=== PATIENT | female | born 1935 | race Caucasian/White ===

== ENCOUNTER 2021-05-19 10:44 | Outpatient (NON) | payer MEDICARE, SELFPAY ==
[2021-05-19 12:09] LABS: Add Urine Microscopic? YES; Appearance Urine Cloudy (Clear); Bacteria Urine 1+ /hpf; Bilirubin Urine Negative (Negative); Blood Urine Negative (Negative); Color Urine Amber (Yellow); Glucose Urine UA Negative (Negative); Ketones Urine Trace mg/dL (Negative); Leukocyte Esterase Ur 1+ LEU/UL (Negative); Mucus Urine Few /lpf; Nitrate Urine Negative (Negative); Protein Urine Negative (Negative); RBC Urine 21-50 /hpf (0-2); Specific Grav Ur 1.018 (1.001-1.035); Squamous Epithelial Cell Urine Many /hpf (Few); WBC Urine 21-30 /hpf
== END 2021-05-19 10:45 | disposition home or self-care (01) ==
PROVIDERS: PCP Family Medicine; Visit Provider Nurse Practitioner Family
DX: R35.0 Frequency of micturition (principal); R31.9 Hematuria, unspecified
CPT/HCPCS: 81001; 87077; 87086; 87186

== ENCOUNTER 2022-03-12 16:04 | Outpatient (CLI) | payer MEDICARE, SELFPAY ==
[2022-03-12 20:08] LABS: Vitamin D 25 Hydroxy 30.4 ng/mL
[2022-03-12 20:14] LABS: Alanine Aminotransferase 17 U/L (6-35); Albumin Level 4.6 g/dL (3.5-5.1); Alkaline Phosphatase 117 U/L (38-126); Anion Gap 13 mmol/L (8-16); Aspartate Amino Transferase 31 U/L (14-36); Bilirubin,Total 0.3 mg/dL (0.2-1.3); Blood Urea Nitrogen 15 mg/dL (7-17); Calcium 9.1 mg/dL (8.4-10.2); Carbon Dioxide 19 mmol/L (22-30); Chloride 95 mmol/L (98-107); Estimated Glomerular Filt Rate > 60; Glucose 105 mg/dL (65-110); Sodium 127 mmol/L (137-145)
[2022-03-12 21:16] LABS: Basophils Percent Auto 0.3 % (0.2-1.2); Eosinophils Absolute Auto 0.3 K/mm3 (0-0.3); Eosinophils Percent Auto 4.2 % (0-4.4); Hemoglobin 13.6 g/dL (12.0-15.0); Immature Granulocyte Absolute 0.01 K/mm3 (0.00-0.031); Immature Granulocyte Percent A 0.2 % (0-0.5); Lymphocytes Percent Auto 30.3 % (18.3-44.2); Mean Corpuscular HGB Conc 33.2 g/dl (32-36); Mean Corpuscular Hemoglobin 31.5 pg (26-34); Mean Corpuscular Volume 94.9 fl (80-100); Mean Platelet Volume 10.6 fl (7.4-10.4); Monocytes Absolute Auto 0.5 K/mm3 (0.1-0.6); Monocytes Percent Auto 7.3 % (2.6-8.5); Neutrophils Absolute Auto 3.8 K/mm3 (1.3-6.7); Neutrophils Percent Auto 57.7 % (45.5-73.1); Platelet Count Result 232 k/mm3 (150-375); Red Blood Count 4.32 M/mm3 (4.2-5.4); Red Cell Distribution Width 13.5 % (11.5-14.5); White Blood Count 6.6 K/mm3 (4.5-10.0)
== END 2022-03-12 16:05 | disposition home or self-care (01) ==
LOC: ANHGOSHLAB 16:05
PROVIDERS: PCP Family Medicine; Visit Provider Nurse Practitioner Family
DX: E55.9 Vitamin D deficiency, unspecified (principal); I10 Essential (primary) hypertension; E03.9 Hypothyroidism, unspecified
CPT/HCPCS: 36415; 80053; 82306; 84443; 85025

== ENCOUNTER 2022-03-17 12:20 | Inpatient (IN) | payer MEDICARE, SELFPAY ==
--- NOTE | ~2022-03-17 | CT_ITS ---
EXAMINATION: CTA BRAIN/CAROTID DATE: 03/19/2022 14:08 INDICATION: Acute stroke. Dementia. Hypertension. TECHNIQUE: Computed tomographic angiography (CTA) of the head and neck was performed with 100 mL Omni paque-350 intravenous contrast. Multiplanar reconstructions and maximum intensity projection 3D-recon structions of the carotid arteries and of the intracranial arteries were created by the technologist on a separate workstation. Precontrast CT of the head was also obtained. Automated exposure control and iterative reconstruction technique were employed.The dose-length product was 1494.15 mGy-cm. COMPARISON: None. FINDINGS: Carotid arteries: Small amount of not hemodynamically significant atherosclerotic plaque at the normal caliber aortic a rch and at the origins of the innominate artery. There is small amount of atherosclerotic plaque with 0% stenosis of both the right and left carotid bulbs relative to normal distal artery lumen diameter (NASCET criteria). The right vertebral artery is dominant. Head: Again seen is a region of prominent decreased attenuation consistent with a known subacute infarct in volving the left basal ganglia including the caudate and lentiform nuclei and intervening anterior li mb of the internal capsule. No acute intracranial hemorrhage or abnormal extra axial fluid collection . There is mild scattered white matter hypoattenuation consistent with chronic small vessel ischemic disease. Symmetric prominence of the sulci consistent with mild age-appropriate diffuse cerebral volu me loss. Ventricles are normal and symmetric. No mass/mass effect. No abnormally enhancing brain lesi ons. The orbits, paranasal sinuses and mastoid air cells are normal. Intracranial arteries Right vertebral artery is dominant. Small amount of atherosclerotic plaque without hemodynamically si gnificant stenosis along the intracranial portion of the bilateral vertebral arteries as well as at t he bilateral carotid siphons. There is no hemodynamically significant stenosis in the vertebral, basi lar and internal carotid arteries. There are no aneurysms identified. Both A1 and P1 segments are pa tent. The P1 segments are however diminutive with majority of flow to the posterior circulation appea ring to arise from the anterior circulation via larger caliber bilateral posterior communicating paul vick. Cerebral arterial arborization appears symmetric. IMPRESSION: 1. Small amount of atherosclerotic plaque with 0% stenosis of the right and left carotid bulbs relati ve to normal distal artery lumen diameter (NASCET criteria). 2. Acute to subacute infarct at the left basal ganglia. 3. Small amount of nonhemodynamically significant atherosclerotic plaque at the intracranial bilatera l vertebral arteries as well as at the bilateral carotid siphons. No hemodynamically significant sten osis, aneurysm or dissection of the cerebral arteries. Reviewed, dictated and finalized at location B. IMPRESSION: 1. Small amount of atherosclerotic plaque with 0% stenosis of the right and lef t carotid bulbs relative to normal distal artery lumen diameter (NASCET criteri a). 2. Acute to subacute infarct at the left basal ganglia. 3. Small amount of nonhemodynamically significant atherosclerotic plaque at the intracranial bilateral vertebral arteries as well as at the bilateral carotid siphons. No hemodynamically significant stenosis, aneurysm or dissection of the cerebral arteries.
--- NOTE | ~2022-03-17 | CT_ITS ---
EXAMINATION: CT abdomen pelvis w con DATE: 03/17/2022 15:29 INDICATION: fever, palpable mass in lower abdomen/pelvis TECHNIQUE: Computed tomography (CT) of the abdomen and pelvis was performed with 100 mL Omnipaque-350 intravenous contrast. Automated exposure control and iterative reconstruction technique were employe d. The dose-length product was 710.19 mGy-cm. COMPARISON: 05/15/2016. FINDINGS: Lower thorax: Coronary artery calcification. Mild cardiomegaly. Right basilar atelectasis. Liver: Mild pneumobilia likely secondary to prior biliary procedure. Biliary/Gallbladder: Gallbladder is absent. No bile duct dilation. Pancreas: No mass or duct dilation. Spleen: Normal. Adrenals:No mass. Kidneys: Bilateral simple cysts. 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 GI tract: No small or large bowel dilation. Appendix not visualized. Diverticulosis without diverticu litis. Mesentery/Peritoneum: No ascites, mass, or free air. Retroperitoneum: No mass. Atherosclerotic abdominal aortic and/or arterial calcifications. Pelvis: Bladder wall inflammation and thickening, bubble of intraluminal gas. Uterus not visualized. Soft Tissues: Soft tissues and body wall unremarkable. Bones: No acute osseous finding. IMPRESSION: Likely cystitis. Otherwise, no acute abdominopelvic process detected. Reviewed, dictated and finalized at location K.
--- NOTE | ~2022-03-17 | MR_ITS ---
EXAMINATION: MR brain/brain stem wo con DATE: 03/18/2022 13:08 INDICATION: Altered mental status. Slurred speech. TECHNIQUE: Magnetic resonance imaging (MRI) of the brain and brainstem was performed without intraven ous contrast. Sequences included sagittal and axial T1-weighted SE, axial diffusion-weighted FS SE, a xial T2*-weighted GRE, axial T2-weighted FLAIR Propeller, and axial T2-weighted Propeller. Apparent d iffusion coefficient (ADC) maps were created. COMPARISON: CT brain dated 03/17/2022. FINDINGS: There is an acute infarction of the left basal ganglia. No evidence for hemorrhage. No vent riculomegaly or midline shift. Structures of the posterior fossa including 7/8th cranial nerve comple xes are normal. No ventriculomegaly or midline shift. Paranasal sinuses are unremarkable. Midline sag ittal images demonstrate a normal corpus callosum and craniovertebral junction. There are scattered m ild periventricular and subcortical white matter changes, most likely related to small vessel ischemi c disease (microangiopathy). IMPRESSION: 1. Acute left lacunar infarction. Dr. Grayson Jerry discussed with with the patient's nurse on [facility] at 03/18/2022 13 :25 CDT. Reviewed, dictated and finalized at location A. IMPRESSION: 1. Acute left lacunar infarction. Dr. Grayson Jerry discussed with with the patient's nurse on [facility],Roopa eckert at 03/18/2022 13:25 CDT.
--- NOTE | ~2022-03-17 | XR_ITS ---
EXAM: XR ankle RT min 3V, XR foot RT min 3V DATE: 03/17/2022 16:42 HISTORY: Right great toe bruising, right lateral ankle swelling/unable to walk on it x4 days . COMPARISON: None available. FINDINGS: Decreased mineralization. No fracture or dislocation. No lytic or blastic lesion. Degenera tive changes at the first MTP, tibiotalar joint and multiple midfoot joints. Achilles and plantar ent hesopathy. No erosion or periosteal change. Ankle and forefoot soft tissue swelling. IMPRESSION: No acute osseous finding in the right foot or ankle. Reviewed, dictated and finalized at location K. IMPRESSION: No acute osseous finding in the right foot or ankle.
--- NOTE | ~2022-03-17 | US_ITS ---
EXAMINATION: US carotid duplex BI DATE: 03/19/2022 13:59 INDICATION: Stroke. Carotid atherosclerosis. TECHNIQUE: Grayscale, color Doppler, and pulsed Doppler images of the cervical carotid arteries were obtained. The degree of vessel stenosis is placed in one of the following categories: normal, <50%, 5 0-69%, >=70% but less than near-occlusion, near-occlusion, or total occlusion. Note that percent sten osis relative to normal distal artery lumen diameter is indirectly measured from velocity measurement s as described by Armaan, et al. Radiology 2003; 229:340-346. COMPARISON: 12/23/2015 FINDINGS: RIGHT: The right common carotid artery (CCA) peak systolic velocity (PSV) is 63 cm/s. The right internal car otid artery (ICA) PSV is 71 cm/s. The right ICA end-diastolic velocity (EDV) is 19 cm/s. The right IC A/CCA PSV ratio is 1.1. Grayscale and color Doppler images yield an estimate of <50% diameter reducti on from plaque in the ICA. The external carotid artery (ECA) PSV is 107 cm/s. There is antegrade flow in the right vertebral artery. LEFT: The left CCA PSV is 48 cm/s. The left ICA PSV is 72 cm/s. The left ICA EDV is 20 cm/s. The left ICA/C CA PSV ratio is 1.5. Grayscale and color Doppler images yield an estimate of <50% diameter reduction from plaque in the ICA. The ECA PSV is 99 cm/s. There is antegrade flow in the left vertebral artery. IMPRESSION: 1. <50% stenosis in the right internal carotid artery. 2. <50% stenosis in the left internal carotid artery. Reviewed, dictated and finalized at location B.
--- NOTE | ~2022-03-17 | XR_ITS ---
EXAMINATION: XR chest 2V 03/17/2022 13:20 INDICATION: Weakness. PROCEDURE: AP and lateral view of the chest COMPARISON: 05/15/2016 FINDINGS: The lungs are clear. The cardiomediastinal silhouette is within normal limits. There are no pleural effusions. There is no pneumothorax suspected. IMPRESSION: 1: NO ACUTE CARDIOPULMONARY DISEASE. Reviewed, dictated and finalized at location A.
--- NOTE | ~2022-03-17 | CT_ITS ---
EXAMINATION: CT brain wo con DATE: 03/17/2022 15:28 INDICATION: weakness . TECHNIQUE: Computed tomography (CT) of the head was performed without intravenous contrast. The mA wa s adjusted according to patient size. Iterative reconstruction technique was employed. The dose-lengt h product was 605.33 mGy-cm. COMPARISON: 05/16/2016 FINDINGS: No acute intracranial hemorrhage or extra-axial fluid collection. No hydrocephalus, mass, or herniation. No acute ischemic infarct. Unremarkable dural venous sinus attenuation. No acute osseous abnormality. The aerated spaces are clear. Mild atrophy and chronic white matter change. Atherosclerotic intracranial calcification. Old left ba bailey ganglia infarct. Bilateral lens replacements. IMPRESSION: No acute intracranial process. Reviewed, dictated and finalized at location K.
[2022-03-17 12:23] VITALS: BP 147/104; PULSE 86; RESP 15; TEMP 37.7
[2022-03-17 13:01] LABS: Add Urine Microscopic? YES; Appearance Urine Clear (Clear); Bilirubin Urine Negative (Negative); Blood Urine Negative (Negative); Color Urine Amber (Yellow); Glucose Urine UA Negative (Negative); Ketones Urine 1+ mg/dL (Negative); Leukocyte Esterase Ur Negative LEU/UL (Negative); Mucus Urine Rare /lpf; Nitrate Urine Negative (Negative); Protein Urine 1+ mg/dL (Negative); RBC Urine 0-2 /hpf (0-2); Specific Grav Ur 1.016 (1.001-1.035); WBC Urine 0-3 /hpf
[2022-03-17 13:18] LABS: Basophils Percent Auto 0.1 % (0.2-1.2); Eosinophils Percent Auto 0.3 % (0-4.4); Immature Granulocyte Absolute 0.05 K/mm3 (0.00-0.031); Immature Granulocyte Percent A 0.5 % (0-0.5); Lymphocytes Absolute Auto 1.04 K/mm3 (0.9-3.2); Lymphocytes Percent Auto 10.5 % (18.3-44.2); Mean Corpuscular HGB Conc 34.2 g/dl (32-36); Mean Corpuscular Hemoglobin 31.3 pg (26-34); Mean Corpuscular Volume 91.6 fl (80-100); Monocytes Absolute Auto 0.8 K/mm3 (0.1-0.6); Neutrophils Percent Auto 80.6 % (45.5-73.1); Platelet Count Result 199 k/mm3 (150-375); Red Blood Count 4.15 M/mm3 (4.2-5.4); Red Cell Distribution Width 13.2 % (11.5-14.5); White Blood Count 9.9 K/mm3 (4.5-10.0)
[2022-03-17 13:25] LABS: Lactic Acid Reflex 1.2 mmol/L (0.7-2.0)
[2022-03-17 13:26] LABS: Alanine Aminotransferase 22 U/L (6-35); Albumin Level 4.1 g/dL (3.5-5.1); Alkaline Phosphatase 93 U/L (38-126); Anion Gap 13 mmol/L (8-16); Aspartate Amino Transferase 40 U/L (14-36); Bilirubin,Total 0.7 mg/dL (0.2-1.3); Blood Urea Nitrogen 15 mg/dL (7-17); Calcium 8.9 mg/dL (8.4-10.2); Carbon Dioxide 23 mmol/L (22-30); Chloride 93 mmol/L (98-107); Estimated Glomerular Filt Rate > 60; Glucose 122 mg/dL (65-110); Lipase 69 U/L (23-300); Potassium 3.1 mmol/L (3.4-5.0); Sodium 129 mmol/L (137-145)
[2022-03-17] MEDS: SODIUM CHLORIDE 0.9% IV 500 ML 999 ML IV CONT (13:34)
[2022-03-17 13:44] LABS: CRP 17.1 mg/dL (<1.0)
--- NOTE | 2022-03-17 13:45 | ED.WEAKNESS ---
HPI - Weakness General Chief complaint: Weakness <January Cosme PA-C - Last Filed: 03/17/22 18:00> Stated complaint: weakness <January Cosme PA-C - Last Filed: 03/17/22 18:00> Time Seen by Provider: 03/17/22 12:23 <January Cosme PA-C - Last Filed: 03/17/22 18:00> Source: patient and family <MILDRED Williamson Last Filed: 03/17/22 18:00> Mode of arrival: EMS <January Cosme PA-C - Last Filed: 03/17/22 18:00> Limitations: dementia <MILDRED Williamson Last Filed: 03/17/22 18:00> History of Present Illness HPI Narrative: This is a 86 year old female that presents to the ER for generalized weakness worsening over the last couple of days. Patient with history of dementia, unable to provide any history. Her reports over the last week she has not been herself. Over the last couple of days she is not even wanting to get out of of her chair. She usually is ambulatory. She was seen at her primary's office earlier this week and presumptively started on Macrobid for possible UTI. Due to her becoming incontinent. She has continued to become more weak since. She has not any specific complaints. Noted to be borderline febrile upon arrival. <January Cosme PA-C - Last Filed: 03/17/22 18:00> Related Data Allergies/Adverse reactions: Allergies Allergy/AdvReac Type Severity Reaction Status Date / Time Penicillins Allergy Unknown Unknown Verified 03/12/22 15:39 <January Cosme PA-C - Last Filed: 03/17/22 18:00> Review of Systems Review of Systems: ROS unobtainable: Yes unobtainable due to medical condition <January Cosme PA-C - Last Filed: 03/17/22 18:00> [facility] Past Medical History Medical History: Medical History Dementia Dyslipidemia Essential (primary) hypertension Gastro-esophageal reflux disease without esophagitis Hypothyroidism, unspecified <January Cosme PA-C - Last Filed: 03/17/22 18:00> Family History Family History: Family History Mother Family history of liver disease <MILDRED Williamson Last Filed: 03/17/22 18:00> Social History Social History: Social History Social History: . Smoking status: Never smoker Alcohol intake: current <MILDRED Williamson Last Filed: 03/17/22 18:00> Exam Narrative: GENERAL: Elderly, well-nourished, and in no acute distress. HEAD: Normocephalic, atraumatic. EYES: PERRLA and EOMI. ENT: Nares clear, no rhinorrhea or epistaxis. Mucous membranes moist. Oropharynx without tonsillar hypertrophy exudate or other lesions. Bilateral TMs pearly sykes non-bulging NECK: Supple. No adenopathy or masses. CHEST: Clear to auscultation. No respiratory distress. No wheezes rales or rhonchi HEART: Regular rate and rhythm. No murmur heard. Normal peripheral pulses. ABDOMEN: Soft, nontender, nondistended, normal active bowel sounds. EXTREMITIES: Normal range of motion. No edema. SKIN: Warm, dry, no rash. NEURO: No focal deficits. Alert and oriented x1. 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 On exam heart regular rate and rhythm without murmur, lungs clear to station bilaterally the abdomen is soft and nontender. Discussed with patient plan for admission all questions answered in agreement at this time <Glimar Vazquez DO - Last Filed: 03/17/22 18:16> Consultations Consultation #1: Spoke with hospitalist about patient and work-up who accepts admission <January Cosme PA-C - Last Filed: 03/17/22 18:00> Date: 03/17/22 <January Cosme PA-C - Last Filed:
[2022-03-17 13:50] LABS: Influenza A QL RT-PCR Negative (Negative); Influenza B QL RT-PCR Negative (Negative); SARS-CoV-2 RNA PCR Negative
--- NOTE | 2022-03-17 14:03 | ECG_ITS ---
Measurements Intervals [place] Rate: 75 P: -25 [place]: 137 QRS: 1 QRSD: 92 T: 16 QT: 408 QTc: 456 Interpretive Statements SINUS RHYTHM WITHIN NORMAL LIMITS NO PREVIOUS ECG AVAILABLE FOR COMPARISON Electronically Signed On 03-18-2022 10:13:43 CDT by Joel Obrien M.D.
[2022-03-17] MEDS: POTASSIUM CHLORIDE 20 MEQ TABLET 40 MEQ PO (16:42)
[2022-03-17 17:04] VITALS: TEMP 36.8
[2022-03-17] MEDS: NITROFURANTOIN MONOHYD MACROCR 100 MG CAP PO (18:18)
[2022-03-17 18:41] LABS: Erythrocyte Sedimentation Rate 43 mm/hr (0-20)
[2022-03-17 19:13] VITALS: BP 172/101; PULSE 80; RESP 16; O2SAT 98
--- NOTE | 2022-03-17 19:13 | PC.NURSE ---
Assumed care of pt at this time. Pt A&Ox1 per baseline. Family at bedside.
[2022-03-17 19:47] VITALS: BP 151/76; PULSE 65; RESP 18; O2SAT 100
[2022-03-17 20:00] VITALS: BP 146/63; PULSE 75; RESP 18; TEMP 36.8; O2SAT 97
--- NOTE | 2022-03-17 20:30 | PC.NURSE ---
This patient, Charley Lane, was admitted to 3 [facility] Surg Room 325-01. Patient/family oriented to hospital policies and general routines including ID bracelet, bed and alarms, visiting hours, pain management, procedures, bathroom and other care routines, personal items, smoking policy, room service/diet, and visiting hours. Information on how to activate the Rapid Response Team has been discussed. Patient/Family are encouraged to report perceived risks to care and to ask questions if they do not understand what they are told or what they should do. Pt provided answers to admission questions, medication list provided. A&OX1 pt at baseline hx dementia
--- NOTE | 2022-03-17 20:41 | PM.IMHP ---
H&P: HPI History of Present Illness Date/Time: 03/17/22 20:41 Chief Complaint: fall Narrative: THIS IS AN 86-YEAR-OLD FEMALE WITH PAST MEDICAL HISTORY SIGNIFICANT FOR HYPERTENSION, HYPOTHYROIDISM, WHEELCHAIR-BOUND, STROKE HOME PATIENT WAS BROUGHT TO THE EMERGENCY ROOM FOR EVALUATION DUE TO GENERALIZED WEAKNESS SHE IS USUALLY ABLE TO TRANSFER FROM AND 2 HER WHEELCHAIR WHICH SHE HAS NOT BEEN ABLE TO DO OF LATELY AND JUST HAD A FALL WHILE TRYING TO GET IN THE WHEELCHAIR IN THE MORNING FROM THE BED. PATIENT CANNOT PROVIDE MUCH HISTORY PRELIMINARY WORKUP WAS SIGNIFICANT FOR: CT OF ABDOMEN AND PELVIS WAS REPORTED : IMPRESSION: Likely cystitis. Otherwise, no acute abdominopelvic process detected. CT head was reported as: IMPRESSION:? No acute intracranial process. chest x-ray was reported as: IMPRESSION: 1:? NO ACUTE CARDIOPULMONARY DISEASE. Review of Systems Review of Systems: ROS unobtainable: Yes unobtainable due to medical condition ( dementia) [facility] Past Medical History Medical History Dementia Dyslipidemia Essential (primary) hypertension Gastro-esophageal reflux disease without esophagitis Hypothyroidism, unspecified Family History Family History Mother Family history of liver disease Social History Social History Social History: . Smoking status: Never smoker Alcohol intake: never Substance use: never Spiritual care concerns: No Meds Home Medications and Allergies Home Medications Medication Instructions Recorded Confirmed Type metoprolol tartrate 50 mg tablet 50 mg PO BID #180 tabs 12/12/21 03/17/22 Rx lisinopril 40 mg tablet 40 mg PO DAILY #90 tabs 01/19/22 03/17/22 Rx memantine 5 mg tablet (Namenda) 5 mg PO QAM #90 tabs 02/05/22 03/17/22 Rx levothyroxine 75 mcg tablet 75 mcg PO DAILY #90 tabs 03/12/22 03/17/22 Rx nitrofurantoin 100 mg PO Q12H 7 days #14 caps 03/12/22 03/17/22 Rx monohydrate/macrocrystals 100 mg capsule (Macrobid) Allergies Allergy/AdvReac Type Severity Reaction Status Date / Time Penicillins Allergy Unknown Unknown Verified 03/12/22 15:39 Vital Signs Vital Signs - 24 hr 03/17/22 12:23 03/17/22 17:04 03/17/22 19:13 Temperature 99.9 F H 98.2 F Pulse Rate 86 80 Respiratory Rate 15 16 Blood Pressure 147/104 H 172/101 H Pulse Oximetry 98 Oxygen Delivery Room Air 03/17/22 19:47 Temperature Pulse Rate 65 Respiratory Rate 18 Blood Pressure 151/76 H Pulse Oximetry 100 Oxygen Delivery Exam Narrative: patient laying extraction Const: General: comfortable, no acute distress, well developed, alert, awake, ill appearing and average body habitus Nutritional Appearance: average body habitus Orientation/consciousness: patient oriented x3 HENMT: Head: normal to inspection, normocephalic and atraumatic Ears: hearing grossly normal bilaterally Face/Nose/Sinus: normal facial exam Face and sinus: normal facial exam Eyes: General: appearance normal, both eyes and all related structures Pupils: Equal, round and reactive pupils present EOM: EOMs intact bilaterally Neck: Neck: full ROM, no lymphadenopathy and no JVD Thyroid: thyroid normal Lymphatic: no lymphadenopathy noted Resp: Effort & Inspection: normal respiratory effort and able to speak in complete sentences Auscultation: clear to auscultation bilaterally Cardio: Jugular venous distension: no JVD Rate: regular rate Rhythm: regular rhythm Heart sounds: S1 normal heart sound present and S2 normal heart sound present GI: GI Palp: Yes Soft to palpation and Yes No hepatosplenomegaly present : General: Yes deferred Skin: Rashes: no rashes Wounds: no wounds Neuro: General: oriented to person and CN's II-XI intact bilaterally Cranial nerves: Yes CN's II-XII intact bilaterally and Yes Equal, r
[2022-03-17 20:51] VITALS: BMI 24.3
[2022-03-18 06:00] VITALS: BP 151/72; PULSE 77; RESP 18; TEMP 36.2; O2SAT 96
[2022-03-18 09:33] LABS: Basophils Percent Auto 0.1 % (0.2-1.2); Eosinophils Absolute Auto 0.1 K/mm3 (0-0.3); Eosinophils Percent Auto 1.4 % (0-4.4); Hematocrit 36.5 % (37.0-47.0); Hemoglobin 12.3 g/dL (12.0-15.0); Immature Granulocyte Absolute 0.02 K/mm3 (0.00-0.031); Immature Granulocyte Percent A 0.3 % (0-0.5); Lymphocytes Absolute Auto 0.85 K/mm3 (0.9-3.2); Lymphocytes Percent Auto 11.9 % (18.3-44.2); Mean Corpuscular HGB Conc 33.7 g/dl (32-36); Mean Corpuscular Hemoglobin 30.7 pg (26-34); Mean Platelet Volume 9.9 fl (7.4-10.4); Monocytes Absolute Auto 0.4 K/mm3 (0.1-0.6); Monocytes Percent Auto 5.5 % (2.6-8.5); Neutrophils Absolute Auto 5.8 K/mm3 (1.3-6.7); Neutrophils Percent Auto 80.8 % (45.5-73.1); Platelet Count Result 205 k/mm3 (150-375); Red Blood Count 4.01 M/mm3 (4.2-5.4); Red Cell Distribution Width 13.2 % (11.5-14.5); White Blood Count 7.1 K/mm3 (4.5-10.0)
[2022-03-18 09:43] LABS: Alanine Aminotransferase 29 U/L (6-35); Albumin Level 3.7 g/dL (3.5-5.1); Alkaline Phosphatase 81 U/L (38-126); Anion Gap 6 mmol/L (8-16); Aspartate Amino Transferase 53 U/L (14-36); Bilirubin,Total 0.6 mg/dL (0.2-1.3); Blood Urea Nitrogen 13 mg/dL (7-17); Calcium 8.6 mg/dL (8.4-10.2); Carbon Dioxide 25 mmol/L (22-30); Chloride 99 mmol/L (98-107); Estimated CRCL calculation 51 ml/min; Estimated Glomerular Filt Rate > 60; Glucose 183 mg/dL (65-110); Potassium 3.3 mmol/L (3.4-5.0); Sodium 130 mmol/L (137-145)
[2022-03-18 09:46] VITALS: PULSE 77
[2022-03-18] MEDS: METOPROLOL TARTRATE 50 MG TAB PO ×2 (09:46→21:26)
[2022-03-18] MEDS: LEVOTHYROXINE SODIUM 75 MCG TABLET PO (09:47)
[2022-03-18] MEDS: TAMSULOSIN HCL 0.4 MG CAPSULE PO (09:47)
[2022-03-18] MEDS: MEMANTINE 5 MG TABLET PO (09:47)
[2022-03-18] MEDS: lisinopriL 20 MG TABLET 40 MG PO (09:47)
--- NOTE | 2022-03-18 11:35 | PCOTNOTE ---
Attempted OT evaluation, patient refused at this time as lunch was coming.
--- NOTE | 2022-03-18 11:35 | P.PNIM_ITS ---
Progress Note: A&P Assessment and Plan (1) Acute hypokalemia: Code(s): E87.6 - Hypokalemia Status: Acute Assessment and Plan: * K 3.1 upon arrival, currently 3.3 * replacement given * Continue to trend labs * Replace as indicated (2) Acute urinary retention: Code(s): R33.8 - Other retention of urine Status: Acute Assessment and Plan: * Patient was noted to have urinary retention. * Urinary catheter was inserted * continue tamsulosin * trend urine output * will possibly need a voiding trial * could be contributing to the weakness * CT the abdomen and pelvis shows likely cystitis which could also be related to retention (3) Generalized weakness: Code(s): R53.1 - Weakness Status: Acute Assessment and Plan: * patient with progressive noted weakness * PT and OT * fall precautions (4) Dementia: Qualifiers: Dementia behavioral disturbance: without behavioral disturbance Dementia type: unspecified type Qualified Code(s): F03.90 - Unspecified dementia without behavioral disturbance Code(s): F03.90 - Unspecified dementia, unspecified severity, without behavioral disturbance, psychotic disturbance, mood disturbance, and anxiety Status: Acute Assessment and Plan: * patient is known to have dementia * continue home Namenda * Trend neuro status (5) Hypothyroidism, unspecified: Qualifiers: Hypothyroidism type: acquired Qualified Code(s): E03.9 - Hypothyroidism, unspecified Code(s): E03.9 - Hypothyroidism, unspecified Status: Chronic Assessment and Plan: * TSH 2.870 * continue levothyroxine 75 mcg (6) Essential (primary) hypertension: Code(s): I10 - Essential (primary) hypertension Status: Chronic Assessment and Plan: * blood pressure is elevated 151/72 * continue home lisinopril 40 mg p.o. daily * continue metoprolol 50 mg p.o. daily * trend blood pressure * adjust therapy as indicated (7) Acute metabolic encephalopathy: Code(s): G93.41 - Metabolic encephalopathy Status: Acute Assessment and Plan: * patient does have a notable weakness * family describes a right-sided lower extremity weakness that is new * there is notable slurred speech with word-finding problems * head CT shows no acute problems * MRI of the brain ordered * could be related to advancing dementia or possible TIA stroke * continue Trend status (8) Cystitis: Code(s): N30.90 - Cystitis, unspecified without hematuria Status: Acute Assessment and Plan: * CT of the abdomen and pelvis indicate a cystitis * UA is not that remarkable * mild very very low grade fever of 99.9 noted * complains of increased confusion and weakness * start ceftriaxone for now Time Spent With Patient Time with patient: Greater than 35 minutes Subjective Date/time seen: 03/18/22 11:35 Interval history: Patient is here for severe weakness and multiple episodes of incontinence. According to her on SaturdayMarch 09 patient was normal they went to have [employer] in the library to get a a video however when he came back out he knows that she is very ganglion unable to speak. At that
--- NOTE | 2022-03-18 11:35 | PM.IMPN ---
Progress Note: A&P Assessment and Plan (1) Acute hypokalemia: Code(s): E87.6 - Hypokalemia Status: Acute Assessment and Plan: K 3.1 upon arrival, currently 3.3 replacement given Continue to trend labs Replace as indicated (2) Acute urinary retention: Code(s): R33.8 - Other retention of urine Status: Acute Assessment and Plan: Patient was noted to have urinary retention. Urinary catheter was inserted continue tamsulosin trend urine output will possibly need a voiding trial could be contributing to the weakness CT the abdomen and pelvis shows likely cystitis which could also be related to retention (3) Generalized weakness: Code(s): R53.1 - Weakness Status: Acute Assessment and Plan: patient with progressive noted weakness PT and OT fall precautions (4) Dementia: Qualifiers: Dementia behavioral disturbance: without behavioral disturbance Dementia type: unspecified type Qualified Code(s): F03.90 - Unspecified dementia without behavioral disturbance Code(s): F03.90 - Unspecified dementia, unspecified severity, without behavioral disturbance, psychotic disturbance, mood disturbance, and anxiety Status: Acute Assessment and Plan: patient is known to have dementia continue home Namenda Trend neuro status (5) Hypothyroidism, unspecified: Qualifiers: Hypothyroidism type: acquired Qualified Code(s): E03.9 - Hypothyroidism, unspecified Code(s): E03.9 - Hypothyroidism, unspecified Status: Chronic Assessment and Plan: TSH 2.870 continue levothyroxine 75 mcg (6) Essential (primary) hypertension: Code(s): I10 - Essential (primary) hypertension Status: Chronic Assessment and Plan: blood pressure is elevated 151/72 continue home lisinopril 40 mg p.o. daily continue metoprolol 50 mg p.o. daily trend blood pressure adjust therapy as indicated (7) Acute metabolic encephalopathy: Code(s): G93.41 - Metabolic encephalopathy Status: Acute Assessment and Plan: patient does have a notable weakness family describes a right-sided lower extremity weakness that is new there is notable slurred speech with word-finding problems head CT shows no acute problems MRI of the brain ordered could be related to advancing dementia or possible TIA stroke continue Trend status (8) Cystitis: Code(s): N30.90 - Cystitis, unspecified without hematuria Status: Acute Assessment and Plan: CT of the abdomen and pelvis indicate a cystitis UA is not that remarkable mild very very low grade fever of 99.9 noted complains of increased confusion and weakness start ceftriaxone for now Time Spent With Patient Time with patient: Greater than 35 minutes Subjective Date/time seen: 03/18/22 11:35 Interval history: Patient is here for severe weakness and multiple episodes of incontinence. According to her on SaturdayMarch 09 patient was normal they went to have [employer] in the library to get a a video however when he came back out he knows that she is very ganglion unable to speak. At that point time he said she was still mobile on SaturdayMarch 10 patient went to [facility] with her and was walking around. as they were getting ready to leave her took her to the bathroom and he went to the bathroom however when he came out and she came out she didn't have any pants on. He noted that at that time her pants were soaked and she had urinated on them. He stated that she will go to the bathroom however just appears is if she forgets to take her pants down to go. On 03/11 it was noted that she was a bit weaker however she was still active and mobile. on 03/12 they thought it was not UTI
--- NOTE | 2022-03-18 12:45 | WPDNEURCNPN ---
Consult date: 03/18/22 HPI: Charley Lane is a 86 year old female admitted to the hospital through the emergency room for the complaints of generalized weakness of the last several days in addition to the ongoing history of dementia and statement by the that over the last week she has not been herself usually she is ambulatory but has not been getting up patient was seen by the primary physician in the office was started on Macrobid for UTI as she was noted lady incontinent she is allergic to penicillin and has ongoing history of hypertension, dementia, GERD, and hypothyroidism, was never a smoker, initial exam in the Emergency Room documented her to be well nourished in no acute distress, vital signs were stable except temp of 99.9? blood pressure 147/104 routine lab norm with C-reactive protein 17.[address] of the head negative in addition x-ray chest normal PMFSH Past Medical History Medical History Dementia Dyslipidemia Essential (primary) hypertension Gastro-esophageal reflux disease without esophagitis Hypothyroidism, unspecified Family History Family History Mother Family history of liver disease Social History Social History Social History: . Smoking status: Never smoker Alcohol intake: never Substance use: never Spiritual care concerns: No Meds Home Medications and Allergies Home Medications Medication Instructions Recorded Confirmed Type metoprolol tartrate 50 mg tablet 50 mg PO BID #180 tabs 12/12/21 03/17/22 Rx lisinopril 40 mg tablet 40 mg PO DAILY #90 tabs 01/19/22 03/17/22 Rx memantine 5 mg tablet (Namenda) 5 mg PO QAM #90 tabs 02/05/22 03/17/22 Rx levothyroxine 75 mcg tablet 75 mcg PO DAILY #90 tabs 03/12/22 03/17/22 Rx nitrofurantoin 100 mg PO Q12H 7 days #14 caps 03/12/22 03/17/22 Rx monohydrate/macrocrystals 100 mg capsule (Macrobid) Allergies Allergy/AdvReac Type Severity Reaction Status Date / Time Penicillins Allergy Unknown Unknown Verified 03/12/22 15:39 Vital Signs Vital Signs - 24 hr 03/17/22 17:04 03/17/22 19:13 03/17/22 19:47 Temperature 36.8 C Pulse Rate 80 65 Respiratory Rate 16 18 Blood Pressure 172/101 H 151/76 H Pulse Oximetry 98 100 03/17/22 20:00 03/18/22 06:00 03/18/22 09:46 Temperature 36.8 C 36.2 C L Pulse Rate 75 77 77 Respiratory Rate 18 18 Blood Pressure 146/63 H 151/72 H Pulse Oximetry 97 96 Results Labs CBC & Chem 7: 03/18/22 09:24 03/18/22 09:24 Labs: Short CBC 03/17/22 03/18/22 Range/Units 13:06 09:24 WBC 9.9 7.1 (4.5-10.0) K/mm3 Hgb 13.0 12.3 (12.0-15.0) g/dL Hct 38.0 36.5 L (37.0-47.0) % Plt Count 199 205 (150-375) k/mm3 BMP 03/17/22 03/18/22 13:06 09:24 Sodium 129 L 130 L Potassium 3.1 L 3.3 L Chloride 93 L 99 Carbon Dioxide 23 25 BUN 15 13 Creatinine 0.60 L 0.60 L Glucose 122 H 183 H Calcium 8.9 8.6 Liver Function 03/17/22 03/18/22 Range/Units 13:06 09:24 Total Bilirubin 0.7 0.6 (0.2-1.3) mg/dL AST 40 H 53 H (14-36) U/L ALT 22 29 (6-35) U/L Alkaline Phosphatase 93 81 (38-126) U/L Albumin 4.1 3.7 (3.5-5.1) g/dL Urine 03/17/22 Range/Units 12:40 Urine Color Milagro (Yellow) Urine Appearance Clear (Clear) Urine pH 6.0 (5.0-9.0) Ur Specific Cecil 1.016 (1.001-1.035) Urine Protein 1+ H (Negative) mg/dL Urine Glucose (UA) Negative (Negative) mg/dL
[2022-03-18] MEDS: ENOXAPARIN 40 MG/0.4 ML SYRINGE SUB-Q (13:38)
[2022-03-18 14:00] VITALS: BP 121/65; PULSE 81; RESP 16; TEMP 36.7; O2SAT 96
[2022-03-18 21:26] VITALS: PULSE 85
[2022-03-18 21:38] VITALS: BP 162/76; PULSE 86; RESP 17; TEMP 36.9; O2SAT 97
--- NOTE | 2022-03-19 | ECHO_ITS ---
Patient Info Name: Charley Lane Age: 86 years : 1935 Gender: Female Ht: 65 in Wt: 145 lbs BSA: 1.75 m2 HR: 73 bpm BP: 162 / 76 mmHg Heart Rhythm: Sinus Rhythm Technical Quality: Good Exam Date: 03/19/2022 10:55 AM Exam Location: [facility] Card Pulmonary Patient Status: Inpatient Admit Date: 03/18/2022 Staff Ordering Physician: Cheikh Pedraza [employer] Machine Setter: Eliz Mason RDCS Attending Provider: Purvi Torres MD Referring Physician: Milo RICHTER; Exam Type: CA echo doppler w bubble study Study Info Indications I63.231 - Cerebral infarction due to unspecified occlusion or stenosis of right carotid arteries Complete two-dimensional, color flow and Doppler transthoracic echocardiogram is performed with agitated saline. Contrast/Agitated Saline Contrast/Ag. Saline: Agitated Saline Amount: 8.00 ml Administered By: Milo Valencia, DINA Summary 1. Left ventricular hypertrophy with normal size and systolic function. 2. Mildly dilated left atrium. 3. Aortic valve sclerosis with trivial aortic regurgitation. 4. Agitated saline contrast exam shows no intracardiac shunt. Left Ventricle Left ventricular chamber dimension is normal. Left ventricular systolic function is normal, estimated at Empty. There is mild concentric increased left ventricular wall thickness. The left ventricular diastolic function is grade I diastolic dysfunction. Right Ventricle Right ventricular chamber dimension is normal. Left Atria Left atrial chamber dimension is mildly enlarged. Right Atria Right atrial chamber dimension is normal. Atrial Septum Intact interatrial septum visualized by agitated saline imaging. Aortic Valve The aortic valve is trileaflet. There is mild aortic valve sclerosis. Pulmonic Valve The pulmonic valve is not well visualized. Mitral Valve The mitral valve has normal leaflets. There is trace mitral valve regurgitation. Tricuspid Valve The tricuspid valve leaflets are normal. Pericardium/Pleural The pericardium appears normal. Aorta The aortic root size at the sinus of Valsalva is normal. Left Ventricular Outflow Tract Name Value Normal LVOT 2D LVOT Diameter 2.2 cm LVOT Doppler LVOT Peak Gradient 4 mmHg LVOT Mean Gradient 2 mmHg LVOT VTI 22 cm LVOT VTI/AV VTI Ratio 0.7 LVOT Stroke Volume 85 ml LVOT CO 4.5 l/min LVOT CI 2.6 l/min/m2 Pulmonic Valve Name Value Normal PV Doppler PV Peak Gradient 2 mmHg Mitral Valve Name Value
--- NOTE | 2022-03-19 05:35 | PC.NURSE ---
Patient blood pressure was 181/87, MD Martinez was made aware, Lisinopril was given early to reduce BP, per MD orders.
[2022-03-19 06:12] LABS: Basophils Percent Auto 0.2 % (0.2-1.2); Eosinophils Absolute Auto 0.2 K/mm3 (0-0.3); Eosinophils Percent Auto 2.6 % (0-4.4); Hemoglobin 12.3 g/dL (12.0-15.0); Immature Granulocyte Absolute 0.02 K/mm3 (0.00-0.031); Immature Granulocyte Percent A 0.4 % (0-0.5); Lymphocytes Absolute Auto 1.18 K/mm3 (0.9-3.2); Lymphocytes Percent Auto 20.7 % (18.3-44.2); Mean Corpuscular HGB Conc 34.2 g/dl (32-36); Mean Corpuscular Hemoglobin 30.8 pg (26-34); Mean Platelet Volume 9.7 fl (7.4-10.4); Monocytes Absolute Auto 0.6 K/mm3 (0.1-0.6); Monocytes Percent Auto 9.6 % (2.6-8.5); Neutrophils Absolute Auto 3.8 K/mm3 (1.3-6.7); Neutrophils Percent Auto 66.5 % (45.5-73.1); Platelet Count Result 206 k/mm3 (150-375); Red Cell Distribution Width 13.1 % (11.5-14.5); White Blood Count 5.7 K/mm3 (4.5-10.0)
[2022-03-19 06:19] LABS: Alanine Aminotransferase 34 U/L (6-35); Albumin Level 3.7 g/dL (3.5-5.1); Alkaline Phosphatase 89 U/L (38-126); Anion Gap 11 mmol/L (8-16); Aspartate Amino Transferase 46 U/L (14-36); Bilirubin,Total 0.5 mg/dL (0.2-1.3); Blood Urea Nitrogen 14 mg/dL (7-17); Calcium 8.5 mg/dL (8.4-10.2); Carbon Dioxide 25 mmol/L (22-30); Chloride 96 mmol/L (98-107); Estimated CRCL calculation 51 ml/min; Estimated Glomerular Filt Rate > 60; Glucose 114 mg/dL (65-110); Magnesium 1.7 mg/dL (1.6-2.3); Potassium 3.6 mmol/L (3.4-5.0); Sodium 132 mmol/L (137-145)
[2022-03-19] MEDS: LEVOTHYROXINE SODIUM 75 MCG TABLET PO (06:30)
[2022-03-19 06:57] VITALS: BP 181/87; PULSE 75; RESP 18; TEMP 36.9; O2SAT 96
[2022-03-19] MEDS: lisinopriL 20 MG TABLET 40 MG PO (07:28)
[2022-03-19 08:00] VITALS: PULSE 75; RESP 18; O2SAT 96
[2022-03-19] MEDS: TAMSULOSIN HCL 0.4 MG CAPSULE PO (08:28)
[2022-03-19] MEDS: MEMANTINE 5 MG TABLET PO (08:28)
[2022-03-19] MEDS: ENOXAPARIN 40 MG/0.4 ML SYRINGE SUB-Q (08:28)
[2022-03-19] MEDS: ATORVASTATIN 40 MG TABLET PO (08:28)
[2022-03-19] MEDS: ASPIRIN 81 MG ENTERIC TABLET PO (08:28)
[2022-03-19] MEDS: METOPROLOL TARTRATE 50 MG TAB PO ×2 (08:28→20:58)
--- NOTE | 2022-03-19 09:41 | WPDNEURCNPN ---
Assessment and Plan Assessment and plan (1) CVA (cerebral vascular accident): Code(s): I63.9 - Cerebral infarction, unspecified Status: Acute (2) Dementia: Qualifiers: Dementia behavioral disturbance: without behavioral disturbance Dementia type: unspecified type Qualified Code(s): F03.90 - Unspecified dementia without behavioral disturbance Code(s): F03.90 - Unspecified dementia, unspecified severity, without behavioral disturbance, psychotic disturbance, mood disturbance, and anxiety Status: Acute (3) Cystitis: Code(s): N30.90 - Cystitis, unspecified without hematuria Status: Acute (4) Acute metabolic encephalopathy: Code(s): G93.41 - Metabolic encephalopathy Status: Acute (5) Acute hypokalemia: Code(s): E87.6 - Hypokalemia Status: Acute Plan Ms. Lane is an 86 year old female with a history of HTN, hypothyroidism, dementia who presented due to predominantly right sided weakness in the setting of altered mental status. MRI confirmed left basal ganglia stroke. - Will obtain CTA head/neck, surface echo - Check HgbA1c and lipid profile, will likely need statin on discharge - ASA 81mg and Plavix 75mg daily x 3 weeks, then just ASA monotherapy Consult date: 03/19/22 Time Seen: 09:41 Reason for consult: Weakness HPI: Charley Lane is a 86 year old female with a history of HTN, hypothyroidism, and dementia presenting due to worsening weakness. Patient's noted that patient started having speech difficulties around 02/27 as well as progressive weakness and urinary incontinence. By 03/14 she was so weak to the point that she could not get out of bed. When she tried getting out of bed, her legs gave out and she fell. also reported foul smelling urine. EMS was called. On arrival to [facility] ED, patient was AOx1. Family also noted that she was weaker on the right side. Labs were significant for hypokalemia. CT abdomen/pelvis showed evidence of cystitis so she is being treated with possible UTI. TSH was 2.8 during admission. She takes Namenda for dementia. LDL last year was 126. Review of Systems Review of Systems: ROS unobtainable: Yes unobtainable due to mental status PMFSH Past Medical History Medical History Dementia Dyslipidemia Essential (primary) hypertension Gastro-esophageal reflux disease without esophagitis Hypothyroidism, unspecified Family History Family History Mother Family history of liver disease Social History Social History Social History: . Smoking status: Never smoker Alcohol intake: never Substance use: never Spiritual care concerns: No Meds Home Medications and Allergies Home Medications Medication Instructions Recorded Confirmed Type metoprolol tartrate 50 mg tablet 50 mg PO BID #180 tabs 12/12/21 03/17/22 Rx lisinopril 40 mg tablet 40 mg PO DAILY #90 tabs 01/19/22 03/17/22 Rx memantine 5 mg tablet (Namenda) 5 mg PO QAM #90 tabs 02/05/22 03/17/22 Rx levothyroxine 75 mcg tablet 75 mcg PO DAILY #90 tabs 03/12/22 03/17/22 Rx nitrofurantoin 100 mg PO Q12H 7 days #14 caps 03/12/22 03/17/22 Rx monohydrate/macrocrystals 100 mg capsule (Macrobid) Allergies Allergy/AdvReac Type Severity Reaction Status Date / Time Penicillins Allergy Unknown Unknown Verified 03/12/22 15:39 Vital Signs Vital Signs - 24 hr 03/18/22 09:46 03/18/22 12:00 03/18/22 14:00 Temperature 36.7 C Pulse Rate 77 81 Respiratory Rate 16 Blood Pressure 121/65 Pulse Oximetry 96 Oxygen Delivery Room Air 03/18/22 21:38 03/18/22 21:26 03/19/22 06:57 Temperature 36.9 C 36.9 C Pulse Rate 86 85 75 Respiratory Rate 17 18 Blood Pressure 162/76 H 181/87 H Pulse Oximetry 97 96 Oxygen Delivery 03/19/22 08:20 Temperature
--- NOTE | 2022-03-19 12:00 | PM.IMPN ---
Progress Note: A&P Assessment and Plan (1) CVA (cerebral vascular accident): Code(s): I63.9 - Cerebral infarction, unspecified Status: Acute Assessment and Plan: Head ct shows no acute findings MRI of the brain showed Acute left lacunar infarction Start aspirin, atorvastatin, and plavix Awaiting echo read Carotid Doppler ordered Neck CTA neurology consulted PT/OT (2) Acute hypokalemia: Code(s): E87.6 - Hypokalemia Status: Acute Assessment and Plan: K 3.1 upon arrival, currently 3.6 replacement given Continue to trend labs Replace as indicated (3) Acute urinary retention: Code(s): R33.8 - Other retention of urine Status: Acute Assessment and Plan: Patient was noted to have urinary retention. Urinary catheter was inserted continue tamsulosin trend urine output will possibly need a voiding trial could be contributing to the weakness CT the abdomen and pelvis shows likely cystitis which could also be related to retention Start void trial (4) Generalized weakness: Code(s): R53.1 - Weakness Status: Acute Assessment and Plan: patient with progressive noted weakness PT and OT fall precautions (5) Dementia: Qualifiers: Dementia behavioral disturbance: without behavioral disturbance Dementia type: unspecified type Qualified Code(s): F03.90 - Unspecified dementia without behavioral disturbance Code(s): F03.90 - Unspecified dementia, unspecified severity, without behavioral disturbance, psychotic disturbance, mood disturbance, and anxiety Status: Acute Assessment and Plan: patient is known to have dementia continue home Namenda Trend neuro status (6) Hypothyroidism, unspecified: Qualifiers: Hypothyroidism type: acquired Qualified Code(s): E03.9 - Hypothyroidism, unspecified Code(s): E03.9 - Hypothyroidism, unspecified Status: Chronic Assessment and Plan: TSH 2.870 continue levothyroxine 75 mcg (7) Essential (primary) hypertension: Code(s): I10 - Essential (primary) hypertension Status: Chronic Assessment and Plan: blood pressure is elevated 181/87 continue home lisinopril 40 mg p.o. daily continue metoprolol 50 mg p.o. daily trend blood pressure adjust therapy as indicated (8) Acute metabolic encephalopathy: Code(s): G93.41 - Metabolic encephalopathy Status: Acute Assessment and Plan: patient does have a notable weakness family describes a right-sided lower extremity weakness that is new there is notable slurred speech with word-finding problems head CT shows no acute problems MRI of the brain found acute left lacunar infarction Patient did have a stroke, which makes sense for the current complaints could be related to advancing dementia or possible TIA stroke continue Trend status (9) Cystitis: Code(s): N30.90 - Cystitis, unspecified without hematuria Status: Acute Assessment and Plan: CT of the abdomen and pelvis indicate a cystitis UA is not that remarkable mild very very low grade fever of 99.9 noted complains of increased confusion and weakness Stop antibiotics since she was found to of had a stroke Time Spent With Patient Time with patient: Greater than 35 minutes Subjective Date/time seen: 03/19/221199 Interval history: 03/19/221199 Patient was lying in bed eating her food. Physical therapy did talk to me about her and states that she did pretty good with a walker however she does lead to 1 side over the other. She appears to be about normal. All questions have been answered at this time patient denies any pain, chest pain, shortness a breath, nausea, vomiting, diarrhea, constipation, weakness or fatigue.
--- NOTE | 2022-03-19 12:00 | P.PNIM_ITS ---
Progress Note: A&P Assessment and Plan (1) CVA (cerebral vascular accident): Code(s): I63.9 - Cerebral infarction, unspecified Status: Acute Assessment and Plan: * Head ct shows no acute findings * MRI of the brain showed Acute left lacunar infarction * Start aspirin, atorvastatin, and plavix * Awaiting echo read * Carotid Doppler ordered * Neck CTA * neurology consulted * PT/OT (2) Acute hypokalemia: Code(s): E87.6 - Hypokalemia Status: Acute Assessment and Plan: * K 3.1 upon arrival, currently 3.6 * replacement given * Continue to trend labs * Replace as indicated (3) Acute urinary retention: Code(s): R33.8 - Other retention of urine Status: Acute Assessment and Plan: * Patient was noted to have urinary retention. * Urinary catheter was inserted * continue tamsulosin * trend urine output * will possibly need a voiding trial * could be contributing to the weakness * CT the abdomen and pelvis shows likely cystitis which could also be related to retention * Start void trial (4) Generalized weakness: Code(s): R53.1 - Weakness Status: Acute Assessment and Plan: * patient with progressive noted weakness * PT and OT * fall precautions (5) Dementia: Qualifiers: Dementia behavioral disturbance: without behavioral disturbance Dementia type: unspecified type Qualified Code(s): F03.90 - Unspecified dementia without behavioral disturbance Code(s): F03.90 - Unspecified dementia, unspecified severity, without behavioral disturbance, psychotic disturbance, mood disturbance, and anxiety Status: Acute Assessment and Plan: * patient is known to have dementia * continue home Namenda * Trend neuro status (6) Hypothyroidism, unspecified: Qualifiers: Hypothyroidism type: acquired Qualified Code(s): E03.9 - H ypothyroidism, unspecified Code(s): E03.9 - Hypothyroidism, unspecified Status: Chronic Assessment and Plan: * TSH 2.870 * continue levothyroxine 75 mcg (7) Essential (primary) hypertension: Code(s): I10 - Essential (primary) hypertension Status: Chronic Assessment and Plan: * blood pressure is elevated 181/87 * continue home lisinopril 40 mg p.o. daily * continue metoprolol 50 mg p.o. daily * trend blood pressure * adjust therapy as indicated (8) Acute metabolic encephalopathy: Code(s): G93.41 - Metabolic encephalopathy Status: Acute Assessment and Plan: * patient does have a notable weakness * family describes a right-sided lower extremity weakness that is new * there is notable slurred speech with word-finding problems * head CT shows no acute problems * MRI of the brain found acute left lacunar infarction * Patient did have a stroke, which makes sense for the current complaints * could be related to advancing dementia or possible TIA stroke * continue Trend status (9) Cystitis: Code(s): N30.90 - Cystitis, unspecified without hematuria Status: Acute Assessment and Plan: * CT of the abdomen and pelvis indicate a cystitis * UA is not that remarkable * mild very very low grade fever of 99.9 noted * complains of i
[2022-03-19 15:35] VITALS: BP 137/61; PULSE 69; RESP 22; TEMP 36; O2SAT 98
[2022-03-19 20:53] VITALS: BP 105/61; PULSE 66; RESP 20; TEMP 36.4; O2SAT 95
[2022-03-20 05:25] VITALS: BP 135/64; PULSE 65; RESP 24; TEMP 36.8; O2SAT 95
[2022-03-20 06:36] LABS: Basophils Percent Auto 0.2 % (0.2-1.2); Eosinophils Absolute Auto 0.4 K/mm3 (0-0.3); Eosinophils Percent Auto 6.4 % (0-4.4); Hematocrit 34.8 % (37.0-47.0); Immature Granulocyte Absolute 0.03 K/mm3 (0.00-0.031); Immature Granulocyte Percent A 0.6 % (0-0.5); Lymphocytes Percent Auto 16.6 % (18.3-44.2); Mean Corpuscular HGB Conc 34.5 g/dl (32-36); Mean Corpuscular Hemoglobin 31.8 pg (26-34); Mean Corpuscular Volume 92.3 fl (80-100); Mean Platelet Volume 9.5 fl (7.4-10.4); Monocytes Absolute Auto 0.5 K/mm3 (0.1-0.6); Monocytes Percent Auto 8.8 % (2.6-8.5); Neutrophils Absolute Auto 3.7 K/mm3 (1.3-6.7); Neutrophils Percent Auto 67.4 % (45.5-73.1); Platelet Count Result 213 k/mm3 (150-375); Red Blood Count 3.77 M/mm3 (4.2-5.4); Red Cell Distribution Width 13.2 % (11.5-14.5); White Blood Count 5.4 K/mm3 (4.5-10.0)
[2022-03-20] MEDS: LEVOTHYROXINE SODIUM 75 MCG TABLET PO (06:50)
[2022-03-20 06:53] LABS: Alanine Aminotransferase 29 U/L (6-35); Albumin Level 3.4 g/dL (3.5-5.1); Alkaline Phosphatase 78 U/L (38-126); Anion Gap 11 mmol/L (8-16); Aspartate Amino Transferase 37 U/L (14-36); Bilirubin,Total 0.3 mg/dL (0.2-1.3); Blood Urea Nitrogen 13 mg/dL (7-17); Calcium 8.5 mg/dL (8.4-10.2); Carbon Dioxide 24 mmol/L (22-30); Chloride 97 mmol/L (98-107); Estimated CRCL calculation 51 ml/min; Estimated Glomerular Filt Rate > 60; Glucose 113 mg/dL (65-110); Magnesium 1.8 mg/dL (1.6-2.3); Potassium 3.5 mmol/L (3.4-5.0); Sodium 132 mmol/L (137-145)
[2022-03-20 08:00] VITALS: PULSE 65; RESP 24; O2SAT 95
[2022-03-20] MEDS: TAMSULOSIN HCL 0.4 MG CAPSULE PO (08:40)
[2022-03-20] MEDS: MEMANTINE 5 MG TABLET PO (08:40)
[2022-03-20] MEDS: lisinopriL 20 MG TABLET 40 MG PO (08:40)
[2022-03-20] MEDS: ENOXAPARIN 40 MG/0.4 ML SYRINGE SUB-Q (08:40)
[2022-03-20] MEDS: METOPROLOL TARTRATE 50 MG TAB PO (08:41)
[2022-03-20] MEDS: CLOPIDOGREL BISULFATE 75 MG TABLET PO (08:41)
[2022-03-20] MEDS: ATORVASTATIN 40 MG TABLET PO (08:41)
[2022-03-20] MEDS: ASPIRIN 81 MG ENTERIC TABLET PO (08:41)
--- NOTE | 2022-03-20 11:15 | PM.DS ---
DS: Admitting Diagnosis Discharge Date 03/20/22 1115 Admitting Diagnosis Acute CVA DS: Discharge Diagnosis Discharge Diagnosis (1) CVA (cerebral vascular accident): Code(s): I63.9 - Cerebral infarction, unspecified Status: Acute Assessment and Plan: Head ct shows no acute findings MRI of the brain showed Acute left lacunar infarction Start aspirin, atorvastatin, and plavix Awaiting echo read Carotid Doppler ordered Neck CTA neurology consulted PT/OT (2) Acute hypokalemia: Code(s): E87.6 - Hypokalemia Status: Acute Assessment and Plan: K 3.1 upon arrival, currently 3.6 replacement given Continue to trend labs Replace as indicated (3) Acute urinary retention: Code(s): R33.8 - Other retention of urine Status: Acute Assessment and Plan: Patient was noted to have urinary retention. Urinary catheter was inserted continue tamsulosin trend urine output will possibly need a voiding trial could be contributing to the weakness CT the abdomen and pelvis shows likely cystitis which could also be related to retention Start void trial (4) Generalized weakness: Code(s): R53.1 - Weakness Status: Acute Assessment and Plan: patient with progressive noted weakness PT and OT fall precautions (5) Dementia: Qualifiers: Dementia behavioral disturbance: without behavioral disturbance Dementia type: unspecified type Qualified Code(s): F03.90 - Unspecified dementia without behavioral disturbance Code(s): F03.90 - Unspecified dementia, unspecified severity, without behavioral disturbance, psychotic disturbance, mood disturbance, and anxiety Status: Acute Assessment and Plan: patient is known to have dementia continue home Namenda Trend neuro status (6) Hypothyroidism, unspecified: Qualifiers: Hypothyroidism type: acquired Qualified Code(s): E03.9 - Hypothyroidism, unspecified Code(s): E03.9 - Hypothyroidism, unspecified Status: Chronic Assessment and Plan: TSH 2.870 continue levothyroxine 75 mcg (7) Essential (primary) hypertension: Code(s): I10 - Essential (primary) hypertension Status: Chronic Assessment and Plan: blood pressure is elevated 181/87 continue home lisinopril 40 mg p.o. daily continue metoprolol 50 mg p.o. daily trend blood pressure adjust therapy as indicated (8) Acute metabolic encephalopathy: Code(s): G93.41 - Metabolic encephalopathy Status: Acute Assessment and Plan: patient does have a notable weakness family describes a right-sided lower extremity weakness that is new there is notable slurred speech with word-finding problems head CT shows no acute problems MRI of the brain found acute left lacunar infarction Patient did have a stroke, which makes sense for the current complaints could be related to advancing dementia or possible TIA stroke continue Trend status (9) Cystitis: Code(s): N30.90 - Cystitis, unspecified without hematuria Status: Acute Assessment and Plan: CT of the abdomen and pelvis indicate a cystitis UA is not that remarkable mild very very low grade fever of 99.9 noted complains of increased confusion and weakness Stop antibiotics since she was found to of had a stroke DS: Summary Hospital Course Hospital Course: Patient is an 86-year-old female with a past medical history of dementia, hyperlipidemia, hypertension, GERD, hypothyroidism who presented to the ED due to severe weakness, fall, multiple episodes of incontinence. Throughout the week starting March 10 the patient had declining. Her noted that she was having increased weakness along with increased forgetfulness. Patient went to prim
--- NOTE | 2022-03-20 11:15 | P.DS_ITS ---
DS: Admitting Diagnosis Discharge Date 03/20/22 1115 Admitting Diagnosis Acute CVA DS: Discharge Diagnosis Discharge Diagnosis (1) CVA (cerebral vascular accident): Code(s): I63.9 - Cerebral infarction, unspecified Status: Acute Assessment and Plan: * Head ct shows no acute findings * MRI of the brain showed Acute left lacunar infarction * Start aspirin, atorvastatin, and plavix * Awaiting echo read * Carotid Doppler ordered * Neck CTA * neurology consulted * PT/OT (2) Acute hypokalemia: Code(s): E87.6 - Hypokalemia Status: Acute Assessment and Plan: * K 3.1 upon arrival, currently 3.6 * replacement given * Continue to trend labs * Replace as indicated (3) Acute urinary retention: Code(s): R33.8 - Other retention of urine Status: Acute Assessment and Plan: * Patient was noted to have urinary retention. * Urinary catheter was inserted * continue tamsulosin * trend urine output * will possibly need a voiding trial * could be contributing to the weakness * CT the abdomen and pelvis shows likely cystitis which could also be related to retention * Start void trial (4) Generalized weakness: Code(s): R53.1 - Weakness Status: Acute Assessment and Plan: * patient with progressive noted weakness * PT and OT * fall precautions (5) Dementia: Qualifiers: Dementia behavioral disturbance: without behavioral disturbance Dementia type: unspecified type Qualified Code(s): F03.90 - Unspecified dementia without behavioral disturbance Code(s): F03.90 - Unspecified dementia, unspecified severity, without behavioral disturbance, psychotic disturbance, mood disturbance, and anxiety Status: Acute Assessment and Plan: * patient is known to have dementia * continue home Namenda * Trend neuro status (6) Hypothyroidism, unspecified: Qualifiers: Hypothyroidism type: acquired Qualified Code(s): E03.9 - Hypothyroidism, unspecified Code(s): E03.9 - Hypothyroidism, unspecified Status: Chronic Assessment and Plan: * TSH 2.870 * continue levothyroxine 75 mcg (7) Essential (primary) hypertension: Code(s): I10 - Essential (primary) hypertension Status: Chronic Assessment and Plan: * blood pressure is elevated 181/87 * continue home lisinopril 40 mg p.o. daily * continue metoprolol 50 mg p.o. daily * trend blood pressure * adjust therapy as indicated (8) Acute metabolic encephalopathy: Code(s): G93.41 - Metabolic encephalopathy Status: Acute Assessment and Plan: * patient does have a notable weakness * family describes a right-sided lower extremity weakness that is new * there is notable slurred speech with word-finding problems * head CT shows no acute problems * MRI of the brain found acute left lacunar infarction * Patient did have a stroke, which makes sense for the current complaints * could be related to advancing dementia or possible TIA stroke * continue Trend status (9) Cystitis: Code(s): N30.90 - Cystitis, unspecified without hematuria Status: Acute Assessment and Plan: * CT of the abdomen and pelvis indicate
[2022-03-20 13:12] LABS: EDCOVIDSCREEN Positive (Negative)
[2022-03-20 14:00] VITALS: BP 113/83; PULSE 79; RESP 20; TEMP 36.7; O2SAT 97
[2022-03-20 15:03] LABS: SARS-CoV-2 RNA PCR Negative
== END 2022-03-20 19:47 | DRG 65 ==
LOC: ANHED 18:00 → ANH3MEDSUR 20:11
PROVIDERS: Physician Assistant; Admitting Provider Hospitalist; Emergency Provider Emergency Medicine; PCP Nurse Practitioner Family; Visit Provider Nurse Practitioner
DX: I63.81 Other cerebral infarction due to occlusion or stenosis of small artery (principal); F03.918 Unspecified dementia, unspecified severity, with other behavioral disturbance; G81.91 Hemiplegia, unspecified affecting right dominant side; N30.90 Cystitis, unspecified without hematuria; R33.8 Other retention of urine; R32 Unspecified urinary incontinence; R53.1 Weakness; E87.6 Hypokalemia; E78.5 Hyperlipidemia, unspecified; I10 Essential (primary) hypertension; E03.9 Hypothyroidism, unspecified; K21.9 Gastro-esophageal reflux disease without esophagitis; S93.401A Sprain of unspecified ligament of right ankle, initial encounter; W18.39XA Other fall on same level, initial encounter; Z20.822 Contact with and (suspected) exposure to COVID-19; Z79.899 Other long term (current) drug therapy; Z88.0 Allergy status to penicillin; Z99.3 Dependence on wheelchair
CPT/HCPCS: 36415; 51701; 70450; 70496; 70498; 70551; 71046; 73610; 73630; 74177; 80053; 81001; 83605; 83690; 83735; 84443; 85025; 85652; 86140; 87040; 87426; 87502; 93005; 93306; 93880; 96365; 96367; 96372; 96375; 97110; 97112; 97116; 97161; 97165; 97530; 97535; 99285; A9270; C9803; G0378; J0131; J0696; J1650; J7040; Q9967; U0003; U0005

== ENCOUNTER 2022-11-09 08:43 | Outpatient (CLI) | payer MEDICARE, SELFPAY ==
[2022-11-09 18:24] LABS: Basophils Percent Auto 0.2 % (0.2-1.2); Eosinophils Absolute Auto 0.4 K/mm3 (0-0.3); Eosinophils Percent Auto 4.5 % (0-4.4); Hematocrit 37.5 % (37.0-47.0); Hemoglobin 12.3 g/dL (12.0-15.0); Immature Granulocyte Absolute 0.02 K/mm3 (0.00-0.031); Immature Granulocyte Percent A 0.2 % (0-0.5); Lymphocytes Absolute Auto 2.55 K/mm3 (0.9-3.2); Lymphocytes Percent Auto 30.4 % (18.3-44.2); Mean Corpuscular HGB Conc 32.8 g/dl (32-36); Mean Corpuscular Hemoglobin 31.6 pg (26-34); Mean Corpuscular Volume 96.4 fl (80-100); Mean Platelet Volume 10.5 fl (7.4-10.4); Monocytes Absolute Auto 0.6 K/mm3 (0.1-0.6); Neutrophils Absolute Auto 4.8 K/mm3 (1.3-6.7); Neutrophils Percent Auto 57.7 % (45.5-73.1); Platelet Count Result 183 k/mm3 (150-375); Red Blood Count 3.89 M/mm3 (4.2-5.4); Red Cell Distribution Width 14.3 % (11.5-14.5); White Blood Count 8.4 K/mm3 (4.5-10.0)
[2022-11-09 18:30] LABS: Alanine Aminotransferase 40 U/L (6-35); Albumin Level 4.1 g/dL (3.5-5.1); Alkaline Phosphatase 137 U/L (38-126); Anion Gap 7 mmol/L (8-16); Aspartate Amino Transferase 48 U/L (14-36); Bilirubin,Total 0.5 mg/dL (0.2-1.3); Blood Urea Nitrogen 25 mg/dL (7-17); Calcium 8.9 mg/dL (8.4-10.2); Carbon Dioxide 26 mmol/L (22-30); Chloride 99 mmol/L (98-107); Cholesterol 115 mg/dL (0-200); Estimated Glomerular Filt Rate > 60; Glucose 83 mg/dL (65-110); HDL Direct 49 mg/dL; Potassium 4.9 mmol/L (3.4-5.0); Sodium 132 mmol/L (137-145); Triglycerides 63 mg/dL (<150)
[2022-11-09 18:40] LABS: LDL Cholesterol Direct 41 mg/dL
[2022-11-09 18:54] LABS: Vitamin D 25 Hydroxy 18.7 ng/mL
== END 2022-11-09 08:44 | disposition home or self-care (01) ==
LOC: ANHGOSHLAB 08:44
PROVIDERS: PCP Family Medicine; Visit Provider Nurse Practitioner Family
DX: E03.9 Hypothyroidism, unspecified (principal); E55.9 Vitamin D deficiency, unspecified; I10 Essential (primary) hypertension; E78.5 Hyperlipidemia, unspecified
CPT/HCPCS: 36415; 80053; 80061; 82306; 84443; 85025

== ENCOUNTER 2023-05-16 09:47 | Outpatient (CLI) | payer MEDICARE, SELFPAY ==
[2023-05-16 12:02] LABS: Basophils Percent Auto 0.2 % (0.2-1.2); Eosinophils Absolute Auto 0.3 K/mm3 (0-0.3); Eosinophils Percent Auto 2.8 % (0-4.4); Hematocrit 38.4 % (37.0-47.0); Hemoglobin 12.5 g/dL (12.0-15.0); Immature Granulocyte Absolute 0.03 K/mm3 (0.00-0.031); Immature Granulocyte Percent A 0.3 % (0-0.5); Lymphocytes Absolute Auto 2.32 K/mm3 (0.9-3.2); Lymphocytes Percent Auto 26.1 % (18.3-44.2); Mean Corpuscular HGB Conc 32.6 g/dl (32-36); Mean Corpuscular Hemoglobin 31.1 pg (26-34); Mean Corpuscular Volume 95.5 fl (80-100); Mean Platelet Volume 10.7 fl (7.4-10.4); Monocytes Absolute Auto 0.6 K/mm3 (0.1-0.6); Monocytes Percent Auto 6.7 % (2.6-8.5); Neutrophils Absolute Auto 5.7 K/mm3 (1.3-6.7); Neutrophils Percent Auto 63.9 % (45.5-73.1); Platelet Count Result 211 k/mm3 (150-375); Red Blood Count 4.02 M/mm3 (4.2-5.4); Red Cell Distribution Width 13.7 % (11.5-14.5); White Blood Count 8.9 K/mm3 (4.5-10.0)
[2023-05-16 12:20] LABS: Alanine Aminotransferase 32 U/L (6-35); Albumin Level 4.2 g/dL (3.5-5.1); Alkaline Phosphatase 127 U/L (38-126); Anion Gap 6 mmol/L (8-16); Aspartate Amino Transferase 58 U/L (14-36); Bilirubin,Total 0.6 mg/dL (0.2-1.3); Blood Urea Nitrogen 21 mg/dL (7-17); Calcium 9.1 mg/dL (8.4-10.2); Carbon Dioxide 27 mmol/L (22-30); Chloride 99 mmol/L (98-107); Cholesterol 106 mg/dL (0-200); Estimated Glomerular Filt Rate > 60; Glucose 102 mg/dL (65-110); HDL Direct 39 mg/dL; Potassium 4.5 mmol/L (3.4-5.0); Sodium 132 mmol/L (137-145); Triglycerides 69 mg/dL (<150)
[2023-05-16 12:31] LABS: LDL Cholesterol Direct 46 mg/dL
[2023-05-16 12:42] LABS: Hemoglobin A1C 5.7 % (<5.7)
[2023-05-19 11:45] LABS: Vitamin D 1,25 (OH)2 Total 47 pg/mL (18-72); Vitamin D2 1,25 (OH)2 <8 pg/mL; Vitamin D3 1,25 (OH)2 47 pg/mL
== END 2023-05-16 09:48 | disposition home or self-care (01) ==
LOC: ANHGOSHLAB 09:48
PROVIDERS: PCP Family Medicine; Visit Provider Nurse Practitioner Family
DX: R73.09 Other abnormal glucose (principal); I10 Essential (primary) hypertension; E03.9 Hypothyroidism, unspecified; E55.9 Vitamin D deficiency, unspecified
CPT/HCPCS: 36415; 80053; 80061; 82652; 83036; 84443; 85025

== ENCOUNTER 2023-12-11 11:51 | Outpatient (CLI) | payer MEDICARE, SELFPAY ==
[2023-12-11 19:29] LABS: Hematocrit 37.6 % (37.0-47.0); Hemoglobin 11.9 g/dL (12.0-15.0); Mean Corpuscular HGB Conc 31.6 g/dl (32-36); Mean Corpuscular Hemoglobin 30.2 pg (26-34); Mean Corpuscular Volume 95.4 fl (80-100); Mean Platelet Volume 10.4 fl (7.4-10.4); Platelet Count Result 258 k/mm3 (150-375); Red Blood Count 3.94 M/mm3 (4.2-5.4); Red Cell Distribution Width 14.1 % (11.5-14.5); White Blood Count 9.5 K/mm3 (4.5-10.0)
[2023-12-11 19:48] LABS: Alanine Aminotransferase 34 U/L (6-35); Alkaline Phosphatase 150 U/L (38-126); Anion Gap 7 mmol/L (4-12); Aspartate Amino Transferase 33 U/L (14-36); Bilirubin,Total 0.4 mg/dL (0.2-1.3); Blood Urea Nitrogen 29 mg/dL (7-17); Carbon Dioxide 24 mmol/L (22-30); Chloride 106 mmol/L (98-107); Cholesterol 90 mg/dL (0-200); Estimated Glomerular Filt Rate > 60; Glucose 88 mg/dL (65-110); HDL Direct 36 mg/dL; Sodium 137 mmol/L (137-145); Triglycerides 73 mg/dL (<150)
[2023-12-11 20:05] LABS: LDL Cholesterol Direct 45 mg/dL
[2023-12-11 20:08] LABS: Thyroid Stimulating Hormone 0.567 uIU/mL (0.465-4.680)
[2023-12-11 20:19] LABS: Potassium 5.6 mmol/L (3.4-5.0)
== END 2023-12-11 11:52 | disposition home or self-care (01) ==
LOC: ANHGOSHLAB 11:52
PROVIDERS: PCP Family Medicine; Visit Provider Nurse Practitioner Family
DX: E78.5 Hyperlipidemia, unspecified (principal); E03.9 Hypothyroidism, unspecified; E55.9 Vitamin D deficiency, unspecified; F03.90 Unspecified dementia, unspecified severity, without behavioral disturbance, psychotic disturbance, mood disturbance, and anxiety; I10 Essential (primary) hypertension; R73.09 Other abnormal glucose; R73.03 Prediabetes; Z13.29 Encounter for screening for other suspected endocrine disorder
CPT/HCPCS: 36415; 80053; 80061; 83036; 84443; 85027

== ENCOUNTER 2023-12-18 10:12 | Outpatient (CLI) | payer MEDICARE, SELFPAY ==
[2023-12-18 13:40] LABS: Thyroid Stimulating Hormone 0.205 uIU/mL (0.465-4.680)
== END 2023-12-18 10:13 | disposition home or self-care (01) ==
LOC: ANHGOSHLAB 10:14
PROVIDERS: PCP Family Medicine; Visit Provider Nurse Practitioner Family
DX: E03.9 Hypothyroidism, unspecified (principal)
CPT/HCPCS: 36415; 84443

== ENCOUNTER 2023-12-24 11:00 | Outpatient (CLI) | payer MEDICARE, SELFPAY ==
[2023-12-24 13:28] LABS: Alanine Aminotransferase 48 U/L (6-35); Albumin Level 3.9 g/dL (3.5-5.1); Alkaline Phosphatase 160 U/L (38-126); Anion Gap 8 mmol/L (4-12); Aspartate Amino Transferase 63 U/L (14-36); Bilirubin,Total 0.4 mg/dL (0.2-1.3); Blood Urea Nitrogen 24 mg/dL (7-17); Calcium 8.7 mg/dL (8.4-10.2); Carbon Dioxide 25 mmol/L (22-30); Chloride 105 mmol/L (98-107); Estimated Glomerular Filt Rate > 60; Glucose 92 mg/dL (65-110); Potassium 4.3 mmol/L (3.4-5.0); Sodium 138 mmol/L (137-145)
== END 2023-12-24 11:01 | disposition home or self-care (01) ==
LOC: ANHGOSHLAB 11:01
PROVIDERS: PCP Family Medicine; Visit Provider Nurse Practitioner Family
DX: E87.6 Hypokalemia (principal)
CPT/HCPCS: 36415; 80053

== ENCOUNTER 2024-01-03 09:23 | Outpatient (CLI) | payer MEDICARE, SELFPAY ==
--- NOTE | ~2024-01-03 | US_ITS ---
EXAMINATION: US abdomen limited DATE: 01/03/2024 09:39 INDICATION: R79.89 - Other specified abnormal findings of blood chemi... TECHNIQUE: Multiple grayscale and Doppler ultrasound images of limited portions of the abdomen were o btained. COMPARISON: CT abdomen pelvis 03/17/2022. FINDINGS: The visualized portions of the pancreas are normal. The liver is normal with normal echogen icity and echotexture. Nodular liver border. Normal hepatopetal flow in the main portal vein. Gallbla dder is surgically absent. The common bile duct measures 4 mm. There was no sonographic Randall sign. Simple right upper pole renal cyst. IMPRESSION: Nodular liver border, as can be seen with cirrhosis. Status post cholecystectomy. Reviewed, dictated and finalized at location K. IMPRESSION: Nodular liver border, as can be seen with cirrhosis. Status post cholecystectom y.
== END 2024-01-03 09:24 ==
LOC: GOSHIMG 09:24
PROVIDERS: PCP Family Medicine; Visit Provider Nurse Practitioner Family
DX: R79.89 Other specified abnormal findings of blood chemistry (principal); Z90.49 Acquired absence of other specified parts of digestive tract
CPT/HCPCS: 76705

== ENCOUNTER 2024-01-10 18:09 | Observation (INO) | payer MEDICARE, SELFPAY ==
--- NOTE | ~2024-01-10 | XR_ITS ---
EXAMINATION: XR chest 1V DATE: 01/10/2024 18:53 INDICATION: Weakness TECHNIQUE: frontal view of the chest was obtained. COMPARISON: Chest radiograph dated 03/17/2022 FINDINGS: Mild scattered linear discoid atelectasis at the right upper and left mid and lower lung zones. No ot her airspace opacities, pulmonary edema, pleural effusion or pneumothorax. The cardiomediastinal silh ouette is normal. Moderate degenerative skeletal changes at the bilateral shoulders. IMPRESSION: 1. Scattered mild discoid atelectasis in both lungs. No other acute cardiopulmonary disease. Reviewed, dictated and finalized at location A. IMPRESSION: 1. Scattered mild discoid atelectasis in both lungs. No other acute cardiopulmo nary disease.
--- NOTE | ~2024-01-10 | XR_ITS ---
EXAMINATION: XR wrist LT min 3V DATE: 01/10/2024 18:53 INDICATION: Left wrist pain TECHNIQUE: Posteroanterior, ulnar deviation, oblique, and lateral views of the left wrist were obtain ed. COMPARISON: none FINDINGS: Bone alignment is normal. Diffuse osteopenia. No fracture. Mild polyarticular osteoarthritis involvin g multiple carpal metacarpal, metacarpophalangeal and interphalangeal joints. No erosions. Chondrocal cinosis in the region of the triangular fibrocartilage complex. Prominent soft tissue swelling about the ulnar aspect of the wrist. Peripheral IV at the dorsal/radial aspect of the distal forearm. IMPRESSION: 1. Diffuse osteopenia and mild polyarticular osteoarthritis. No acute osseous abnormality. Reviewed, dictated and finalized at location A. IMPRESSION: 1. Diffuse osteopenia and mild polyarticular osteoarthritis. No acute osseous a bnormality.
--- NOTE | ~2024-01-10 | CT_ITS ---
EXAMINATION: CT brain wo con DATE: 01/10/2024 21:07 INDICATION: Weakness TECHNIQUE: Computed tomography (CT) of the head was performed without intravenous contrast. Sagittal and coronal reconstructions were performed. The mA was adjusted according to patient size. Iterative reconstruction technique was employed. The dose-length product was 605.33 mGy-cm. COMPARISON: head CT dated 03/19/2022 FINDINGS: Residual encephalomalacia at the site of the previous noted at that time acute infarct at the left ba bailey ganglia. No acute intracranial hemorrhage, acute infarction or abnormal extra axial fluid collect ion. There is mild scattered white matter hypoattenuation consistent with chronic small vessel ischem ic disease. Symmetric prominence of the sulci consistent with mild age-appropriate diffuse cerebral v olume loss. Ventricles are normal and symmetric. No mass/mass effect. The orbits, paranasal sinuses a nd mastoid air cells are normal. IMPRESSION: 1. Old infarct at the left basal ganglia. No acute intracranial process. 2. Age-related changes including mild diffuse volume loss and mild scattered white matter hypoattenua tion consistent with chronic small vessel ischemic disease. Reviewed, dictated and finalized at location A. IMPRESSION: 1. Old infarct at the left basal ganglia. No acute intracranial process. 2. Age-related changes including mild diffuse volume loss and mild scattered wh ite matter hypoattenuation consistent with chronic small vessel ischemic diseas e.
--- NOTE | ~2024-01-10 | CT_ITS ---
EXAMINATION: CT abdomen pelvis w con DATE: 01/10/2024 21:11 INDICATION: Weakness and dementia TECHNIQUE: Computed tomography (CT) of the abdomen and pelvis was performed with 100 mL Omnipaque-350 intravenous contrast. Automated exposure control and iterative reconstruction technique were employe d. The dose-length product was 669.80 mGy-cm. COMPARISON: 03/15/2022 FINDINGS: Mild right basilar atelectasis. Cardiomegaly. Atherosclerotic coronary artery calcifications. Aortic valve calcification. Chronic mild intra or extra hepatic biliary ductal dilation likely related to pr ior cholecystectomy with surgical clips the gallbladder fossa. Spleen, pancreas, bilateral adrenal gl ands are normal. There are bilateral renal cysts measuring up to 2.1 cm in the right kidney. Moderate amount of stool scattered throughout the colon. There is moderate colonic diverticulosis with a sigm oid predominance. There is no adjacent inflammatory change to suggest diverticulitis. No bowel obstr uction. The uterus is not identified and has likely been surgically resected. Small amount of gas in the bladder which demonstrates wall thickening with mucosal hyperemia and a couple bladder diverticul a. There is stranding in the surrounding fat consistent with cystitis. No free intraperitoneal gas or fluid. No pathologically enlarged abdominal or pelvic lymphadenopathy. T10 burst fracture with two t hirds anterior vertebral body height loss and 3 mm retropulsion resulting in mild central canal steno sis. Mild lower thoracic and lower lumbar spondylosis. IMPRESSION: 1. Likely cystitis. Correlate with urinalysis. Reviewed, dictated and finalized at location A.
[2024-01-10 18:24] VITALS: BP 119/67; PULSE 88; RESP 17; TEMP 37.1; O2SAT 94
--- NOTE | 2024-01-10 18:26 | ECG_ITS ---
Test Date: 2024-01-10 19:23:31 Measurements Intervals Lewis Rate: 83 P: -9 WA: 143 QRS: -10 QRSD: 81 T: 8 QT: 376 QTc: 443 Interpretive Statements BASELINE ARTIFACT, DIFFICULT INTERPRETATION SINUS RHYTHM WITH OCCASIONAL VENTRICULAR PREMATURE COMPLEXES ] POSSIBLE ANTERIOR AND INFERIOR MYOCARDIAL INFARCTION , OF INDETERMINATE AGE [30 ms Q WAVE IN V3/V4, OR R < 0.2 mV IN V4] ABNORMAL ECG No previous ECG available for comparison Electronically Signed On 01-11-2024 08:15:27 CDT by Joel Obrien M.D.
--- NOTE | 2024-01-10 18:47 | ED.GENADULT ---
HPI - General Adult General Chief complaint: Unspecified Stated complaint: gen. weakness x 1 week, LUE swelling Time Seen by Provider: 01/10/24 18:13 History of Present Illness HPI narrative: This is an 88-year-old female with history of dementia and recent CVA presenting for weakness. Over the last week the is known that she has seemed like she has low energy and has had been having trouble getting up from chairs. Today at dinner they attempted to get her up but she was too weak to stand and had to sit down on the floor. Screws lower gently to the floor without head trauma. Unfortunately the patient lost the ability to speak Slovenian after her stroke earlier this year and only speaks Malawian. Her does not speak Malawian which makes communicating with her quite challenging. They are denying any fevers headaches chest pain difficulty breathing abdominal pain or urinary symptoms. Related Data Allergies Allergy/AdvReac Type Severity Reaction Status Date / Time Penicillins Allergy Unknown Unknown Verified 12/11/23 11:28 [facility] Past Medical History Medical History Acute metabolic encephalopathy Alkaline phosphatase elevation Dementia Dyslipidemia Elevated LFTs Essential (primary) hypertension Gastro-esophageal reflux disease without esophagitis Hypothyroidism, unspecified Family History Family History Mother Family history of liver disease Social History Social History Social History: . Smoking status: Never smoker Second hand tobacco smoke exposure: No Alcohol intake: never Substance use: never Substance use type: does not use Do You Feel Safe in your Home?: Yes Lack of Transportation: No Lack of Food: Never True Current Housing: I Have Housing Concerned About Future Housing: No Difficulty Paying Gas/Electric Bills: No Difficulty Paying for Meds: No Currently Unemployed: No Education: High School Diploma/GED Difficulty w/ Childcare or Family Care: No Living arrangements: with family Gender identity (if verbalized by the patient): Female Spiritual care concerns: No Exam Narrative: APPEARANCE: No apparent distress. Head: atraumatic. EYES: EOMI, NOSE: Atraumatic NECK: Trachea midline RESPIRATORY: No increased rate of breathing clear to auscultation CARDIOVASCULAR: RRR, no peripheral edema ABDOMINAL: Non-distended soft nontender MUSCULOSKELETAl: The left wrist is erythematous/warm to touch and has exquisite pain with active and passive range of motion. NEURO: Alert. Moving all 4 extremities SKIN:: Warm, dry. Normal color PSYCHIATRIC: Normal affect Course Vital Signs Vital signs: Vital Signs Temperature 98.7 F 01/10/24 18:24 Pulse Rate 88 01/10/24 18:24 Respiratory Rate 17 01/10/24 18:24 Blood Pressure 119/67 01/10/24 18:24 Pulse Oximetry 94 01/10/24 18:24 Oxygen Delivery Room Air 01/10/24 18:24 Temperature 98.7 F 01/10/24 18:24 Pulse Rate 88 01/10/24 18:24 Respiratory Rate 17 01/10/24 18:24 Blood Pressure 119/67 01/10/24 18:24 Pulse Oximetry 94 01/10/24 18:24 Oxygen Delivery Room Air 01/10/24 18:24 Fraction of Inspired Oxygen 95 01/10/24 19:04 Medical Decision Making [facility] Narrative Medical decision making narrative: -Course: 88-year-old female presenting ED with progressive weakness over the last week. Physical exam significant for a red swollen L wrist with pain on active and passive range of motion. ESR 85 and CRP 2.9. No history of gout or inflammatory arthritis. The rest of her workup significant for UTI on urinalysis and CT scan. Patient started on cefepime and vancomycin which will cover UTI and possibly a septic joint. Consult placed to IR for possible wrist tap in the morning. Consult placed in EMR for orthopedic consultat
[2024-01-10 18:50] LABS: Eosinophils Absolute Auto 0.1 K/mm3 (0-0.3); Eosinophils Percent Auto 0.6 % (0-4.4); Hematocrit 34.8 % (37.0-47.0); Hemoglobin 11.4 g/dL (12.0-15.0); Immature Granulocyte Absolute 0.03 K/mm3 (0.00-0.031); Immature Granulocyte Percent A 0.4 % (0-0.5); Lymphocytes Absolute Auto 1.94 K/mm3 (0.9-3.2); Lymphocytes Percent Auto 22.9 % (18.3-44.2); Mean Corpuscular HGB Conc 32.8 g/dl (32-36); Mean Corpuscular Hemoglobin 30.7 pg (26-34); Mean Corpuscular Volume 93.8 fl (80-100); Mean Platelet Volume 10.5 fl (7.4-10.4); Monocytes Absolute Auto 0.9 K/mm3 (0.1-0.6); Neutrophils Absolute Auto 5.5 K/mm3 (1.3-6.7); Neutrophils Percent Auto 65.1 % (45.5-73.1); Platelet Count Result 202 k/mm3 (150-375); Red Blood Count 3.71 M/mm3 (4.2-5.4); Red Cell Distribution Width 14.3 % (11.5-14.5); White Blood Count 8.5 K/mm3 (4.5-10.0)
[2024-01-10 18:59] LABS: Ethanol < 10 mg/dL (<10); Lactic Acid Reflex 1.2 mmol/L (0.7-2.0)
[2024-01-10 19:00] LABS: Alanine Aminotransferase 51 U/L (6-35); Albumin Level 3.8 g/dL (3.5-5.1); Alkaline Phosphatase 166 U/L (38-126); Anion Gap 11 mmol/L (4-12); Aspartate Amino Transferase 45 U/L (14-36); Bilirubin,Total 0.5 mg/dL (0.2-1.3); Blood Urea Nitrogen 29 mg/dL (7-17); Calcium 8.7 mg/dL (8.4-10.2); Carbon Dioxide 20 mmol/L (22-30); Chloride 106 mmol/L (98-107); Creatine Kinase 197 U/L (30-135); Estimated CRCL calculation 36 ml/min; Estimated Glomerular Filt Rate > 60; Glucose 142 mg/dL (65-110); Lipase 94 U/L (23-300); Magnesium 1.8 mg/dL (1.6-2.3); Phosphorus 2.8 mg/dL (2.5-4.5); Potassium 3.8 mmol/L (3.4-5.0); Sodium 137 mmol/L (137-145)
[2024-01-10] MEDS: SODIUM CHLORIDE 0.9% IV 1,000 ML 999 ML IV CONT (19:01)
[2024-01-10 19:02] LABS: CRP 2.9 mg/dL (<1.0)
[2024-01-10 19:05] LABS: Prothrombin Time 13.9 Seconds (11.1-14.7)
[2024-01-10 19:06] LABS: Partial Thromboplastin Time 28.9 Seconds (22.3-36.8)
[2024-01-10 19:09] LABS: Erythrocyte Sedimentation Rate 85 mm/hr (0-20)
[2024-01-10 19:11] LABS: NT Pro B Type Natriuretic Pept 1480 pg/mL (19.9-100); Troponin I < 0.012 ng/mL (0.000-0.034)
[2024-01-10 19:26] LABS: Influenza A QL RT-PCR Negative (Negative); Influenza B QL RT-PCR Negative (Negative); RSV RNA, RT-PCR Negative (Negative); SARS-CoV-2 RNA PCR Negative (Negative)
[2024-01-10 19:31] LABS: Thyroid Stimulating Hormone Reflex 0.102 uIU/mL (0.465-4.68)
[2024-01-10 19:45] VITALS: BP 118/58; PULSE 78; RESP 17; O2SAT 96
[2024-01-10 20:30] VITALS: BP 117/61; PULSE 70; RESP 13; TEMP 37.3; O2SAT 97
[2024-01-10 21:51] LABS: Total Triiodothyronine (T3) 1.03 NG/ML (0.97-1.69)
[2024-01-10 22:08] LABS: Add Urine Microscopic? YES; Appearance Urine Turbid (Clear); Bacteria Urine 4+ /hpf; Bilirubin Urine Negative (Negative); Blood Urine 2+ (Negative); Color Urine Yellow (Yellow); Glucose Urine UA Negative (Negative); Ketones Urine Negative (Negative); Leukocyte Esterase Ur 3+ LEU/UL (Negative); Need Manual Microscopic Reviewed; Nitrate Urine Negative (Negative); Non Pathogenic Casts 0-2; Protein Urine 3+ mg/dL (Negative); RBC Urine 51-100 /hpf (0-2); Specific Grav Ur 1.031 (1.001-1.035); Squamous Epithelial Cell Urine Occasional /hpf (Few); WBC Urine >100 /hpf (0-3); pH Urine 7.5 (5.0-9.0)
[2024-01-10 22:11] LABS: Amphetamine Screen Urine Negative (Negative); Barbiturate Screen Urine Negative (Negative); Benzodiazepines Screen Urine Negative (Negative); Cannabinoid Screen Urine Negative (Negative); Cocaine Screen Urine Negative (Negative); Methadone Screen Urine Negative (Negative); Opiate Screen Urine Negative (Negative); Phencyclidine Screen Urine Negative (Negative)
[2024-01-10 22:21] VITALS: BP 127/77; PULSE 83; RESP 17; TEMP 37.7; O2SAT 96
[2024-01-10] MEDS: CEFEPIME 2 GM/NS 50 ML 2 GM/50 ML BAG IVPB (22:57)
[2024-01-10] MEDS: LACTATED RINGERS 1,000 ML 125 ML IV CONT (22:57)
[2024-01-10 23:24] VITALS: PULSE 86; RESP 17; O2SAT 97
--- NOTE | 2024-01-10 23:28 | PC.NURSE ---
patient report was called to 2nd medical floor at [id number] spoke with Sahra Almazan
[2024-01-11] VITALS (8 sets, daily range): BP systolic 121–158; BP diastolic 54–81; PULSE 63–89; RESP 16–20; TEMP 36.1–36.8; O2SAT 96–99; BMI 24.1
[2024-01-11] MEDS: VANCOMYCIN 1,250 MG/NS 250 ML 1,250 MG/250 ML BAG 166.67 MG IVPB
[2024-01-11 00:22] LABS: Uric Acid 3.6 mg/dL (2.5-7.5)
--- NOTE | 2024-01-11 00:38 | ADMGEN ---
This patient, Charley Lane, was admitted to Medical Room 242-01. Patient/family oriented to hospital policies and general routines including ID bracelet, bed and alarms, visiting hours, pain management, procedures, bathroom and other care routines, personal items, smoking policy, room service/diet, and visiting hours. Information on how to activate the Rapid Response Team has been discussed. Patient/Family are encouraged to report perceived risks to care and to ask questions if they do not understand what they are told or what they should do.
[2024-01-11 01:08] LABS: Troponin I 0.021 ng/mL (0.000-0.034)
[2024-01-11 04:39] LABS: Estimated CRCL calculation 55 ml/min; Estimated Glomerular Filt Rate > 60
[2024-01-11] MEDS: LACTATED RINGERS 1,000 ML 125 ML IV CONT ×3 (09:00→20:15)
[2024-01-11] MEDS: METOPROLOL TARTRATE 50 MG TAB PO ×2 (09:08→20:15)
[2024-01-11] MEDS: ASPIRIN 81 MG ENTERIC TABLET PO (09:08)
[2024-01-11] MEDS: LEVOTHYROXINE SODIUM 100 MCG TABLET PO (09:09)
[2024-01-11] MEDS: lisinopriL 20 MG TABLET 40 MG PO (09:09)
[2024-01-11] MEDS: ATORVASTATIN 40 MG TABLET PO (09:09)
[2024-01-11] MEDS: MEMANTINE 10 MG TABLET PO ×2 (09:09→20:15)
[2024-01-11] MEDS: CEFEPIME 1 GM/NS 50 ML 1 GM/50 ML BAG IVPB ×2 (12:33→22:37)
--- NOTE | 2024-01-11 12:49 | PM.IMHP ---
H&P: HPI History of Present Illness Date/Time: 01/11/24 12:49 Chief Complaint: weakness and swelling of left wrist Narrative: ER-HPI narrative: This is an 88-year-old female with history of dementia and recent CVA presenting for weakness. Over the last week the is known that she has seemed like she has low energy and has had been having trouble getting up from chairs. Today at dinner they attempted to get her up but she was too weak to stand and had to sit down on the floor. Screws lower gently to the floor without head trauma. Unfortunately the patient lost the ability to speak Syriac after her stroke earlier this year and only speaks Estonian. Her does not speak Estonian which makes communicating with her quite challenging. They are denying any fevers headaches chest pain difficulty breathing abdominal pain or urinary symptoms. unfortunately patient is unable to provide detail ROS or history, her is present in the room, he not sure how she injured her left wrist. x-ray of the wrist did not show any acute injury, it does show diffuse osteopenia and mild polyarticular osteoarthritis, the does appear red and swollen to further evaluate orthopedic surgeon is consulted and further recommendation to follow. Patient is admitted inpatient for cellulitis of left wrist. Review of Systems Review of Systems: Due to dementia and stroke unable to obtain detail ROS PMFSH Past Medical History Medical History Acute metabolic encephalopathy Alkaline phosphatase elevation Dementia Dyslipidemia Elevated LFTs Essential (primary) hypertension Gastro-esophageal reflux disease without esophagitis Hypothyroidism, unspecified Family History Family History Mother Family history of liver disease Social History Social History Social History: . Smoking status: Never smoker Second hand tobacco smoke exposure: No Alcohol intake: never Substance use: never Substance use type: does not use Do You Feel Safe in your Home?: Yes Lack of Transportation: No Lack of Food: Never True Current Housing: I Have Housing Concerned About Future Housing: No Difficulty Paying Gas/Electric Bills: No Difficulty Paying for Meds: No Currently Unemployed: No Education: Don't Know Difficulty w/ Childcare or Family Care: No Living arrangements: with family Gender identity (if verbalized by the patient): Female Spiritual care concerns: No Meds Home Medications and Allergies Home Medications Medication Instructions Recorded Confirmed Type aspirin 81 mg tablet,delayed 81 mg PO QAM #30 tabs 03/20/22 01/11/24 Rx release memantine 10 mg tablet 10 mg PO BID #60 tabs 07/09/23 01/11/24 Rx levothyroxine 100 mcg tablet 100 mcg PO DAILY #90 tabs 07/25/23 01/11/24 Rx lisinopril 40 mg tablet 40 mg PO DAILY #90 tabs 11/25/23 01/11/24 Rx metoprolol tartrate 50 mg tablet 50 mg PO BID #180 tabs 11/25/23 01/11/24 Rx atorvastatin 40 mg tablet 40 mg PO DAILY #90 tabs 12/19/23 01/11/24 Rx Allergies Allergy/AdvReac Type Severity Reaction Status Date / Time Penicillins Allergy Unknown Unknown Verified 12/11/23 11:28 Vital Signs Vital Signs - 24 hr 01/10/24 18:24 01/10/24 19:04 01/10/24 22:21 Temperature 37.1 C 37.7 C H Pulse Rate 88 83 Respiratory Rate 17 17 Blood Pressure 119/67 127/77 Pulse Oximetry 94 96 Oxygen Delivery Room Air Fraction of Inspired Oxygen 95 01/10/24 20:30 01/10/24 19:45 01/10/24 23:24 Temperature 37.3 C Pulse Rate 70 78 86 Respiratory Rate 13 17 17 Blood Pressure 117/61 118/58 L Pulse Oximetry 97 96 97 Oxygen Delivery Fraction of Inspired Oxygen 01/11/24 00:00 01/11/24 00:57 01/11/24 06:00 Temperature 36.7 C 36.4 C L Pulse Rate 89 75 Respiratory Rate 18 18 Blood Pressur
[2024-01-12] MEDS: VANCOMYCIN 1,250 MG/NS 250 ML 1,250 MG/250 ML BAG 166.67 MG IVPB (00:20)
[2024-01-12 04:03] VITALS: BP 148/65; PULSE 69; RESP 20; TEMP 36.7; O2SAT 99
[2024-01-12 04:31] LABS: Basophils Percent Auto 0.1 % (0.2-1.2); Eosinophils Absolute Auto 0.2 K/mm3 (0-0.3); Hematocrit 31.2 % (37.0-47.0); Hemoglobin 9.9 g/dL (12.0-15.0); Immature Granulocyte Absolute 0.02 K/mm3 (0.00-0.031); Immature Granulocyte Percent A 0.2 % (0-0.5); Lymphocytes Absolute Auto 1.81 K/mm3 (0.9-3.2); Lymphocytes Percent Auto 20.4 % (18.3-44.2); Mean Corpuscular HGB Conc 31.7 g/dl (32-36); Mean Corpuscular Hemoglobin 30.2 pg (26-34); Mean Corpuscular Volume 95.1 fl (80-100); Mean Platelet Volume 10.4 fl (7.4-10.4); Monocytes Absolute Auto 0.6 K/mm3 (0.1-0.6); Monocytes Percent Auto 6.5 % (2.6-8.5); Neutrophils Absolute Auto 6.3 K/mm3 (1.3-6.7); Neutrophils Percent Auto 70.8 % (45.5-73.1); Platelet Count Result 175 k/mm3 (150-375); Red Blood Count 3.28 M/mm3 (4.2-5.4); Red Cell Distribution Width 13.9 % (11.5-14.5); White Blood Count 8.9 K/mm3 (4.5-10.0)
[2024-01-12 04:49] LABS: Anion Gap 7 mmol/L (4-12); Blood Urea Nitrogen 14 mg/dL (7-17); Carbon Dioxide 21 mmol/L (22-30); Chloride 109 mmol/L (98-107); Estimated CRCL calculation 47 ml/min; Estimated Glomerular Filt Rate > 60; Glucose 99 mg/dL (65-110); Magnesium 1.7 mg/dL (1.6-2.3); Potassium 3.4 mmol/L (3.4-5.0); Sodium 137 mmol/L (137-145)
[2024-01-12] MEDS: LEVOTHYROXINE SODIUM 100 MCG TABLET PO (06:19)
[2024-01-12 08:18] VITALS: O2SAT 97
[2024-01-12 09:21] VITALS: BP 168/94; PULSE 80; PULSE 98; RESP 16
[2024-01-12] MEDS: POTASSIUM CHLORIDE 20 MEQ PACKET (FOR LIQUID) 40 MEQ PO (09:21)
[2024-01-12] MEDS: MEMANTINE 10 MG TABLET PO ×2 (09:21→20:33)
[2024-01-12] MEDS: ATORVASTATIN 40 MG TABLET PO (09:21)
[2024-01-12] MEDS: lisinopriL 20 MG TABLET 40 MG PO (09:21)
[2024-01-12] MEDS: METOPROLOL TARTRATE 50 MG TAB PO ×2 (09:21→20:33)
[2024-01-12] MEDS: ASPIRIN 81 MG ENTERIC TABLET PO (09:21)
--- NOTE | 2024-01-12 10:44 | PM.CNOR ---
Assessment and Plan Assessment and plan (1) Cellulitis and abscess of hand, except fingers and thumb: Code(s): L03.119 - Cellulitis of unspecified part of limb; L02.519 - Cutaneous abscess of unspecified hand Status: Acute Plan Left hand cellulitis is resolving with antibiotics. Elevated sed rate with normal white count. Currently, there is a significant bruise, but signs of cellulitis are resolving. She may have had a minor trauma to the back of the hand which precipitated her symptoms. No signs of wrist joint intra-articular sepsis, or deep infection. Radiographs showed minimal degenerative changes without evidence for intra-articular pathology or acute inflammatory process. No immobilization is required. Recommend continuing antibiotics for 1-2 weeks. Discussed the findings with the patient's , who is reassured. History of Present Illness HPI Consult date: 01/12/24 Chief complaint: UTI, R/O septic joint Narrative: Pleasant 88-year-old female admitted with UTI and redness and warmth to the left hand. Her gives the history as she does not speak Kinyarwanda and is status post stroke with dementia. He states that she had put pressure on the back of her hand to get out of a chair. There may have been some bruising but primarily redness and warmth. Currently denies pain. Review of Systems Review of Systems: Urinary tract infection. All systems reviewed & are unremarkable except as noted in HPI and below PMFSH Past Medical History Medical History Acute metabolic encephalopathy Alkaline phosphatase elevation Dementia Dyslipidemia Elevated LFTs Essential (primary) hypertension Gastro-esophageal reflux disease without esophagitis Hypothyroidism, unspecified Family History Family History Mother Family history of liver disease Social History Social History Social History: . Smoking status: Never smoker Second hand tobacco smoke exposure: No Alcohol intake: never Substance use: never Substance use type: does not use Do You Feel Safe in your Home?: Yes Lack of Transportation: No Lack of Food: Never True Current Housing: I Have Housing Concerned About Future Housing: No Difficulty Paying Gas/Electric Bills: No Difficulty Paying for Meds: No Currently Unemployed: No Education: Don't Know Difficulty w/ Childcare or Family Care: No Living arrangements: with family Gender identity (if verbalized by the patient): Female Spiritual care concerns: No Meds Home Medications and Allergies Home Medications Medication Instructions Recorded Confirmed Type aspirin 81 mg tablet,delayed 81 mg PO QAM #30 tabs 03/20/22 01/11/24 Rx release memantine 10 mg tablet 10 mg PO BID #60 tabs 07/09/23 01/11/24 Rx levothyroxine 100 mcg tablet 100 mcg PO DAILY #90 tabs 07/25/23 01/11/24 Rx lisinopril 40 mg tablet 40 mg PO DAILY #90 tabs 11/25/23 01/11/24 Rx metoprolol tartrate 50 mg tablet 50 mg PO BID #180 tabs 11/25/23 01/11/24 Rx atorvastatin 40 mg tablet 40 mg PO DAILY #90 tabs 12/19/23 01/11/24 Rx Allergies Allergy/AdvReac Type Severity Reaction Status Date / Time Penicillins Allergy Unknown Unknown Verified 12/11/23 11:28 Vital Signs Vital Signs - 24 hr 01/11/24 14:00 01/11/24 19:45 01/11/24 20:00 Temperature 36.7 C 36.1 C L Pulse Rate 64 76 76 Respiratory Rate 16 20 20 Blood Pressure 121/67 148/79 H Pulse Oximetry 98 99 99 Oxygen Delivery Room Air Fraction of Inspired Oxygen 95 01/11/24 22:00 01/12/24 04:03 01/12/24 08:18 Temperature 36.8 C 36.7 C Pulse Rate 63 69 Respiratory Rate 18 20 Blood Pressure 148/59 H 148/65 H Pulse Oximetry 97 99 97 Oxygen Delivery Room Air Fraction of Inspired Oxygen 01/12/24 09:21 01/12/24 09:21 Temperature Pulse R
--- NOTE | 2024-01-12 11:19 | WPDPN ---
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 x-ray of the wrist did not show any acute injury, it does show diffuse osteopenia and mild polyarticular osteoarthritis, the does appears erythematous and swollen suspect cellulitis patient is being treated with Cefepime, and Vancomycin. to further evaluate orthopedic surgeon is consulted and further recommendation to follow. patient with history of dementia now with UTI has resulted generalized weakness, patient is being treated with Cefepime and Vancomycin, will follow up on urine culture, will have PT/ OT work the patient and patient will benefit going to acute rehab. today patient is sitting in the recliner chair her is present, left wrist appears less red, swollen and patient is able to flex and extend the wrist, thinks when she was getting up from the a chair she may have injured the wrist, x-ray did not show any bony injury, patient will be seen by an orthopedics and further recommendation to follow, will continue current regiments and ABX. patient is working with PT/OT. Subjective Date/time seen: 01/12/24 11:19 Interval history: unfortunately patient is unable to provide detail ROS or history, her is present in the room, he not sure how she injured her left wrist. x-ray of the wrist did not show any acute injury, it does show diffuse osteopenia and mild polyarticular osteoarthritis, the does appears erythematous and swollen suspect cellulitis patient is being treated with Cefepime, and Vancomycin. to further evaluate orthopedic surgeon is consulted and further recommendation to follow. patient with history of dementia now with UTI has resulted generalized weakness, patient is being treated with Cefepime and Vancomycin, will follow up on urine culture, will have PT/ OT work the patient and patient will benefit going to acute rehab. today patient is sitting in the recliner chair her is present, left wrist appears less red, swollen and patient is able to flex and extend the wrist, thinks when she was getting up from the a chair she may have injured the wrist, x-ray did not show any bony injury, patient will be seen by an orthopedics and further recommendation to follow, will continue current regiments and ABX. patient is working with PT/OT. Review of Systems Review of Systems: Due to dementia and stroke unable to obtain detail ROS Exam Narrative: Patient is comfortable, NAD HEENT: eyes are clear and none icteric LUNGS:CTA HEART: RR S1S2 ABD: BS+, Soft and nontender Lower extremities: no edema MS: left wrist dorsal aspect erythematous swelling there is no obvious sign of trauma, difficult make fist and extend and flex the wrist. SKIN: nonjaundiced Neuro: grossly intact. Objective Data Vital Signs Vital Signs: Vital Signs - 24 hr 01/11/24 14:00 01/11/24 19:45 01/11/24 20:00 Temperature 36.7 C 36.1 C L Pulse Rate 64 76 76 Respiratory Rate 16 20 20 Blood Pressure 121/67 148/79 H Pulse Oximetry 98 99 99 Oxygen Delivery Room Air Fraction of Inspired Oxygen
[2024-01-12] MEDS: CEFEPIME 1 GM/NS 50 ML 1 GM/50 ML BAG IVPB ×2 (12:48→22:12)
[2024-01-12] MEDS: LACTATED RINGERS 1,000 ML 125 ML IV CONT ×2 (12:49→22:11)
[2024-01-12 14:00] VITALS: BP 158/62; PULSE 81; RESP 18; TEMP 36.3; O2SAT 97
[2024-01-12 20:08] VITALS: BP 130/64; PULSE 77; RESP 18; TEMP 37.1; O2SAT 100
[2024-01-12 20:33] VITALS: PULSE 75
[2024-01-13] MEDS: VANCOMYCIN 1,250 MG/NS 250 ML 1,250 MG/250 ML BAG 166.67 MG IVPB (00:21)
[2024-01-13 05:07] LABS: Basophils Percent Auto 0.1 % (0.2-1.2); Eosinophils Absolute Auto 0.3 K/mm3 (0-0.3); Eosinophils Percent Auto 4.6 % (0-4.4); Hematocrit 30.2 % (37.0-47.0); Hemoglobin 9.9 g/dL (12.0-15.0); Immature Granulocyte Absolute 0.02 K/mm3 (0.00-0.031); Immature Granulocyte Percent A 0.3 % (0-0.5); Lymphocytes Absolute Auto 1.76 K/mm3 (0.9-3.2); Lymphocytes Percent Auto 25.4 % (18.3-44.2); Mean Corpuscular HGB Conc 32.8 g/dl (32-36); Mean Corpuscular Hemoglobin 30.8 pg (26-34); Mean Corpuscular Volume 94.1 fl (80-100); Mean Platelet Volume 10.7 fl (7.4-10.4); Monocytes Absolute Auto 0.6 K/mm3 (0.1-0.6); Monocytes Percent Auto 8.4 % (2.6-8.5); Neutrophils Absolute Auto 4.2 K/mm3 (1.3-6.7); Neutrophils Percent Auto 61.2 % (45.5-73.1); Platelet Count Result 173 k/mm3 (150-375); Red Blood Count 3.21 M/mm3 (4.2-5.4); Red Cell Distribution Width 13.7 % (11.5-14.5); White Blood Count 6.9 K/mm3 (4.5-10.0)
[2024-01-13 05:16] LABS: Anion Gap 6 mmol/L (4-12); Blood Urea Nitrogen 9 mg/dL (7-17); Calcium 8.1 mg/dL (8.4-10.2); Carbon Dioxide 24 mmol/L (22-30); Chloride 104 mmol/L (98-107); Estimated CRCL calculation 47 ml/min; Estimated Glomerular Filt Rate > 60; Glucose 103 mg/dL (65-110); Magnesium 1.6 mg/dL (1.6-2.3); Potassium 3.3 mmol/L (3.4-5.0); Sodium 134 mmol/L (137-145)
[2024-01-13 05:48] VITALS: BP 152/66; PULSE 72; RESP 18; TEMP 36.8; O2SAT 99
[2024-01-13] MEDS: LEVOTHYROXINE SODIUM 100 MCG TABLET PO (05:57)
--- NOTE | 2024-01-13 07:39 | PM.IMPN ---
Progress Note: A&P Assessment and Plan (1) Cellulitis and abscess of hand, except fingers and thumb: Code(s): L03.119 - Cellulitis of unspecified part of limb; L02.519 - Cutaneous abscess of unspecified hand Status: Acute Assessment and Plan: 01/13/24: Continue cefepime and vancomycin Blood cultures are showing no growth to date on preliminary read Ortho was consulted and recommending antibiotics for 1-2 weeks for the cellulitis. They do not feel that this is a septic arthritis. 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, unspecified hand; M19.039 - Primary osteoarthritis, unspecified wrist Status: Chronic Assessment and Plan: 01/13/24: Wrist x-ray showing diffuse osteopenia and mild poly articular osteoarthritis Ortho was consulted and feels that this is not a septic arthritis (5) Dementia: Code(s): F03.90 - Unspecified dementia, unspecified severity, without behavioral disturbance, psychotic disturbance, mood disturbance, and anxiety Status: Chronic Assessment and Plan: 01/13/24: Continue Namenda Time Spent With Patient Time with patient: Greater than 35 minutes Subjective Date/time seen: 01/13/24 07:39 Interval history: Interval history: This is an 88-year-old female who presented to hospital on 01/11/2024 with weakness and swelling of the left wrist. Workup in the hospital included a left wrist x-ray which did not show any acute injury however did show diffuse osteopenia and mild osteoarthritis with cellulitis changes. Chest x-ray showed scattered mild discord atelectasis in both lungs. Head CT showed old infarct in the left basal ganglia and age-related changes. Abdomen pelvis CT showed cystitis. Initial labs showed a normal white blood cell count of 8.5, hemoglobin 11.4, ESR 85, AST 45, ALT 51, total CK 197, troponin negative x2, C reactive protein 2.9, proBNP 1480, TSH 0.102. UA was obtained which showed 3+ urine protein, 2+ urine blood, 3+ leukocyte, 51-100 urine RBC, greater than 100 urine WBC, 4+ bacteria. Urine drug screen was negative. Respiratory panel was negative for influenza a and B, RSV, COVID. Urine and blood cultures were obtained. Urine culture showing E coli which is pansensitive on final read. Blood cultures were showing no growth to date on preliminary read. Patient was started on cefepime and vancomycin. Ortho seen patient and he does not feel that this is a septic arthritis and to continue antibiotics for 1-2 weeks. 01/13/24: Patient denies. Patient endorses. Review of Systems Review of Systems: All systems reviewed & are unremarkable except as noted in HPI and below Constitutional: Constitutional: Reports as per HPI and Reports no additional constitutional complaints Eyes: Eyes: Reports as per HPI and Reports no additional eye complaints ENT: Reports system reviewed and no additional complaints, except as documented and Reports as per HPI Cardiovascular: Cardiovascular: Reports as per HPI and Reports no additional cardiovascular complaints Respiratory: Respiratory: Reports as per HPI and Reports no additional respiratory complaints Gastrointestinal: Gastrointestinal: Reports as per HPI and Reports no additional gastrointestinal complaints Genitourinary: Genitourinary: Reports no additional female genitourinary complaints and Reports as per HPI Musculoskeletal: Muscu
[2024-01-13] MEDS: LACTATED RINGERS 1,000 ML 125 ML IV CONT (07:55)
--- NOTE | 2024-01-13 07:57 | PM.PNORT ---
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 Left hand cellulitis is resolving with antibiotics. No redness today. Likely she was getting up from a seated position putting pressure on the dorsal wrist on the armrest when getting up. Current thought is maybe she burst a blood vessel which caused the redness and bruising. No pain today. No signs of wrist joint intra-articular sepsis, or deep infection. Radiographs showed minimal degenerative changes without evidence for intra-articular pathology or acute inflammatory process. No immobilization is required. Recommend continuing antibiotics for 1-2 weeks. Discussed the findings with the patient's , who is reassured. Subjective Subjective Date/Time Seen: 01/13/24 07:57 Interval history: Patient pleasantly confused. No acute distress. No pain at the wrist. No redness, warmth. Light touch sensation intact. Review of Systems Review of Systems: All systems reviewed & are unremarkable except as noted in HPI and below Exam Narrative: Appears comfortable. 88 y/o female. Pleasantly demented. Cooperative. Left hand with moderate ecchymosis along the dorsum of the hand and wrist. No warmth. No definite erythema. No streaking. Elbow benign. Good wrist motion without pain. No wrist effusion. Wiggles fingers with good strength. Near normal motion with good desktop support associate. Capillary refill brisk. Light touch sensation intact. Objective Data Vital Signs Vital Signs: Vital Signs - 24 hr 01/12/24 08:18 01/12/24 09:21 01/12/24 09:21 Temperature Pulse Rate 80 98 Respiratory Rate 16 Blood Pressure 168/94 H Pulse Oximetry 97 Oxygen Delivery Room Air 01/12/24 09:20 01/12/24 14:00 01/12/24 20:08 Temperature 97.3 F L 98.8 F Pulse Rate 81 77 Respiratory Rate 18 18 Blood Pressure 158/62 H 130/64 Pulse Oximetry 97 100 Oxygen Delivery Room Air 01/12/24 20:33 01/12/24 20:00 01/13/24 05:48 Temperature 98.3 F Pulse Rate 75 72 Respiratory Rate 18 Blood Pressure 152/66 H Pulse Oximetry 99 Oxygen Delivery Room Air Intake/Output Intake/Output: Intake & Output 01/10/24 01/11/24 01/12/24 01/13/24 23:59 23:59 23:59 23:59 Intake Total 1050 3110.8 2980 1050 Output Total 1 Balance 1050 3110.8 2979 1050 Meds/Results Medications: Active Medications Generic Name Dose Route Start Last Admin Trade Name Freq PRN Reason Stop Dose Admin Aspirin 81 mg 01/11/24 09:00 01/12/24 09:21 Aspirin 81 Mg Enteric Tablet PO 81 mg QAM RADHA Administration Atorvastatin Calcium 40 mg 01/11/24 09:00 01/12/24 09:21 Atorvastatin 40 Mg Tablet PO 40 mg DAILY RADHA Administration Lactated Ringer's 1,000 mls @ 125 mls/hr 01/10/24 22:25 01/13/24 07:55 Lr - Lactated Ringers Iv IV CONT 125 mls/hr .Q8H RADHA Administration Cefepime HCl 1 gm in 50 mls @ 100 mls/hr 01/11/24 11:00 01/12/24 22:12 Maxipime 1 Gm/Ns 50 Ml IVPB 100 mls/hr Q12H RADHA Administration Vancomycin HCl 1,250 mg in 250 mls @ 166.667 mls/hr 01/12/24 00:00 01/13/24 00:21 Vancomycin 1,250 Mg/Ns 250 Ml IVPB 166.67 mls/hr Q24H RADHA Administration Levothyroxine Sodium 100 mcg 01/11/24 08:35 01/13/24 05:57 Levothyroxine Sodium 100 Mcg Tablet PO 100 mcg DAILY@0630 RADHA Administration Lisinopril 40 mg 01/11/24 09:00 01/12/24 09:21 Lisinopril 20 Mg Tablet PO 40 mg DAILY RADHA Administration Memantine 10 mg 01/11/24 09:00 01/12/24 20:33 Memantine 10 Mg Tablet PO 10 mg Q12HR RADHA Administration Metoprolol Tartrate 50 mg
[2024-01-13 08:51] VITALS: PULSE 72; RESP 18; O2SAT 99
[2024-01-13] MEDS: METOPROLOL TARTRATE 50 MG TAB PO (08:51)
[2024-01-13] MEDS: MEMANTINE 10 MG TABLET PO (08:51)
[2024-01-13] MEDS: ATORVASTATIN 40 MG TABLET PO (08:51)
[2024-01-13] MEDS: ASPIRIN 81 MG ENTERIC TABLET PO (08:51)
[2024-01-13] MEDS: lisinopriL 20 MG TABLET 40 MG PO (08:51)
--- NOTE | 2024-01-13 11:28 | PCPTNOTE ---
On 01/13/24, the student, [Maria Luisa Parada], provided care and completed [facility] documentation on this patient. I have reviewed the student's documentation and agree with the findings.
[2024-01-13] MEDS: SULFAMETHOXAZOLE/TRIMETHOPRIM 800/160 MG DS TABLET 1 TAB PO (12:06)
[2024-01-13 14:00] VITALS: BP 145/67; PULSE 81; RESP 20; O2SAT 98
--- NOTE | 2024-01-13 17:01 | PM.DS ---
DS: Admitting Diagnosis Discharge Date 01/13/24 Admitting Diagnosis Weakness Dementia Joint inflammation of hand and wrist Acute UTI Cellulitis of hand DS: Summary Hospital Course Reason for hospitalization: Weakness Dementia Joint inflammation of hand and wrist Acute UTI Cellulitis of hand Hospital Course: This is an 88-year-old female who presented to hospital on 01/11/2024 with weakness and swelling of the left wrist. Workup in the hospital included a left wrist x-ray which did not show any acute injury however did show diffuse osteopenia and mild osteoarthritis with cellulitis changes. Chest x-ray showed scattered mild discord atelectasis in both lungs. Head CT showed old infarct in the left basal ganglia and age-related changes. Abdomen pelvis CT showed cystitis. Initial labs showed a normal white blood cell count of 8.5, hemoglobin 11.4, ESR 85, AST 45, ALT 51, total CK 197, troponin negative x2, C reactive protein 2.9, proBNP 1480, TSH 0.102. UA was obtained which showed 3+ urine protein, 2+ urine blood, 3+ leukocyte, 51-100 urine RBC, greater than 100 urine WBC, 4+ bacteria. Urine drug screen was negative. Respiratory panel was negative for influenza a and B, RSV, COVID. Urine and blood cultures were obtained. Urine culture showing E coli which is pansensitive on final read. Blood cultures were showing no growth to date on preliminary read. Patient was started on cefepime and vancomycin which was changed over today to Bactrim. Ortho seen patient and he does not feel that this is a septic arthritis and to continue antibiotics for 1-2 weeks. Patient is stable for discharge at this time. She will need to finish all of her antibiotic and follow up with her primary care physician in 1 week. Final diagnosis: Cellulitis, acute urinary tract infection Status at Discharge Cognitive/behavioral status at discharge: Alert oriented x1 Functional status at discharge: uses cane/walker Overall status at discharge: patient is progressing back to baseline Time Spent with Patient Time attestation: Total time spent providing and/or coordinating discharge services: Time spent: Greater than 30 minutes Exam Narrative: General: In no acute distress, well nourished Head: atraumatic, no encephalopathy Eyes: EOMI, PERRLA, sclera clear ENT: moist mucous membranes, nasal passages clear Neck: supple, no JVD, no adenopathy, trachea midline Cardiac: Normal S1 and S2. No murmur, gallops or friction rubs, peripheral pulses intact. Respiratory: Lungs clear to auscultation, no adventitious lung sounds, currently on room air Gastrointestinal: soft, non-distended, non-tender, normoactive bowel sounds. : voiding without difficulty. Extremities: moves all extremities well, no edema Skin: Left hand notable ecchymosis, no swelling noted Neuro: Alert and Confused, cranial nerves intact, no neuro deficits. Psych: normal mood, normal affect, interactive DS: Data Data Completed and Pending Completed studies during hospitalization: Abdomen/pelvis CT Head CT Wrist x-ray Chest x-ray Pending studies at discharge: Blood cultures Labs on day of discharge: Labs from last 24 hours 01/13/24 04:30 WBC 6.9 RBC 3.21 L Hgb 9.9 L Hct 30.2 L MCV 94.1 MCH 30.8 MCHC 32.8 RDW 13.7 Plt Count 173 MPV 10.7 H Immature Gran % (Auto) 0.3 Neut % (Auto) 61.2 Lymph % (Auto) 25.4 Hamlin % (Auto) 8.4 Eos % (Auto) 4.6 H Baso % (Auto) 0.1 L Lymph # (Auto) 1.76 Hamlin # (Auto) 0.6 Eos # (Auto) 0.3 Baso # (Auto) 0.0 Abs Immat Gran (auto) 0.02 Absolute Neuts (auto) 4.2 Absolute Nucleated RBC 0.000 Nucleated RBC % 0.0 Sodium 134 L Potassium 3.3 L Chloride 104 Carbon Dioxide 24 Anion Gap 6 BUN 9 D Creatinine 0.60 L Estim Creat Clear Calc 47 Estimated GFR > 60 Glucose 103 Calcium 8.1 L Magnesium 1.6 Preliminary micro results at discharge 01/10/24 18:42 Blood Culture - Preliminary Blood 01/10/24 19:21 Blood
== END 2024-01-13 18:50 | disposition home or self-care (01) ==
LOC: ANHED 22:32 → ANH2MED 23:29
PROVIDERS: Family Medicine; Admitting Provider Internal Medicine; Emergency Provider Emergency Medicine; PCP Family Medicine; Visit Provider Nurse Practitioner Acute Care
DX: N39.0 Urinary tract infection, site not specified (principal); B96.20 Unspecified Escherichia coli [E. coli] as the cause of diseases classified elsewhere; L02.512 Cutaneous abscess of left hand; L03.114 Cellulitis of left upper limb; M19.032 Primary osteoarthritis, left wrist; M19.042 Primary osteoarthritis, left hand; R53.1 Weakness; F03.90 Unspecified dementia, unspecified severity, without behavioral disturbance, psychotic disturbance, mood disturbance, and anxiety; I69.328 Other speech and language deficits following cerebral infarction; I10 Essential (primary) hypertension; E78.5 Hyperlipidemia, unspecified; K21.9 Gastro-esophageal reflux disease without esophagitis; E03.9 Hypothyroidism, unspecified; Z79.82 Long term (current) use of aspirin; Z20.822 Contact with and (suspected) exposure to COVID-19; Z79.899 Other long term (current) drug therapy
CPT/HCPCS: 36415; 70450; 71045; 73110; 74177; 80048; 80053; 80307; 81001; 82550; 82565; 83605; 83690; 83735; 83880; 84100; 84439; 84443; 84480; 84484; 84550; 85025; 85610; 85652; 85730; 86140; 87040; 87077; 87086; 87088; 87186; 87637; 93005; 96361; 96365; 96366; 96376; 97161; 97166; 99285; A9270; G0378; J0692; J3370; J7030; J7120; Q9967

== ENCOUNTER 2024-01-30 10:58 | Outpatient (CLI) | payer MEDICARE, SELFPAY ==
[2024-01-30 13:32] LABS: Basophils Percent Auto 0.3 % (0.2-1.2); Eosinophils Percent Auto 0.5 % (0-4.4); Hematocrit 36.5 % (37.0-47.0); Hemoglobin 12.2 g/dL (12.0-15.0); Immature Granulocyte Absolute 0.04 K/mm3 (0.00-0.031); Immature Granulocyte Percent A 0.5 % (0-0.5); Lymphocytes Absolute Auto 2.29 K/mm3 (0.9-3.2); Lymphocytes Percent Auto 29.1 % (18.3-44.2); Mean Corpuscular HGB Conc 33.4 g/dl (32-36); Mean Corpuscular Hemoglobin 30.7 pg (26-34); Mean Corpuscular Volume 91.9 fl (80-100); Mean Platelet Volume 9.9 fl (7.4-10.4); Monocytes Absolute Auto 0.8 K/mm3 (0.1-0.6); Monocytes Percent Auto 9.9 % (2.6-8.5); Neutrophils Absolute Auto 4.7 K/mm3 (1.3-6.7); Neutrophils Percent Auto 59.7 % (45.5-73.1); Platelet Count Result 297 k/mm3 (150-375); Red Blood Count 3.97 M/mm3 (4.2-5.4); White Blood Count 7.9 K/mm3 (4.5-10.0)
[2024-01-30 13:46] LABS: Iron 51 ug/dL (37-170)
[2024-01-30 13:56] LABS: Percent Iron Saturation 21 % (20-50)
[2024-01-30 14:37] LABS: Alanine Aminotransferase 33 U/L (6-35); Albumin Level 3.8 g/dL (3.5-5.1); Alkaline Phosphatase 150 U/L (38-126); Anion Gap 9 mmol/L (4-12); Aspartate Amino Transferase 62 U/L (14-36); Bilirubin,Total 0.6 mg/dL (0.2-1.3); Blood Urea Nitrogen 17 mg/dL (7-17); Calcium 8.9 mg/dL (8.4-10.2); Carbon Dioxide 28 mmol/L (22-30); Chloride 89 mmol/L (98-107); Estimated Glomerular Filt Rate > 60; Glucose 109 mg/dL (65-110); Potassium 4.5 mmol/L (3.4-5.0); Sodium 126 mmol/L (137-145)
== END 2024-01-30 10:59 | disposition home or self-care (01) ==
PROVIDERS: PCP Family Medicine; Visit Provider Family Medicine
DX: E03.9 Hypothyroidism, unspecified (principal); D64.9 Anemia, unspecified; Z00.00 Encounter for general adult medical examination without abnormal findings; I10 Essential (primary) hypertension
CPT/HCPCS: 36415; 80053; 82607; 82728; 82746; 83540; 83550; 85025

== ENCOUNTER 2024-01-31 13:02 | Outpatient (NON) | payer MEDICARE, SELFPAY | END 2024-01-31 13:03 | disposition home or self-care (01) | LOC: ANHGOSHLAB 13:04 | PROVIDERS: PCP Family Medicine; Visit Provider Family Medicine | DX: E03.9 Hypothyroidism, unspecified (principal); Z00.00 Encounter for general adult medical examination without abnormal findings; D64.9 Anemia, unspecified; R53.1 Weakness | CPT/HCPCS: 87077; 87086; 87186 ==

== ENCOUNTER 2024-02-13 10:24 | Inpatient (IN) | payer MEDICARE, SELFPAY ==
[2024-02-13] VITALS (12 sets, daily range): BP systolic 118–148; BP diastolic 56–84; PULSE 67–100; RESP 12–23; TEMP 36.4–36.6; O2SAT 100; BMI 24.3
--- NOTE | ~2024-02-13 | XR_ITS ---
XR shoulder RT min 2V 02/13/2024 12:51 INDICATION: Right shoulder pain PROCEDURE: 4 views right shoulder COMPARISON: No prior studies for comparison. FINDINGS: Fracture, dislocation or subluxation is not identified. There is mild polyarticular osteoar thritis. The soft tissues appear within normal limits. No foreign bodies are identified. Osteopenia. IMPRESSION: 1: NO ACUTE BONE OR JOINT ABNORMALITY IDENTIFIED. Reviewed, dictated and finalized at location B.
--- NOTE | ~2024-02-13 | XR_ITS ---
XR chest 2V 02/13/2024 12:50 Indication: Status post fall. Weakness. Procedure: 2 view chest Comparison: 01/10/2024 Findings: Subtle right upper lobe airspace disease. Heart size normal. Left lung clear. No pleural ef fusion, edema or pneumothorax. Impression: 1: Subtle right upper lobe airspace disease, suspicious for pneumonia. Reviewed, dictated and finalized at location B. Impression: 1: Subtle right upper lobe airspace disease, suspicious for pneumonia.
--- NOTE | ~2024-02-13 | XR_ITS ---
XR forearm RT 2V 02/13/2024 12:51 Indication: Right arm pain after landing on arm last night. Procedure: 2 views right forearm Comparison: No prior studies Findings: Osteopenia. No fracture, subluxation or dislocation. No focal soft tissue abnormality. No f oreign bodies. Impression: 1: No acute bone or joint abnormality. Reviewed, dictated and finalized at location B. Impression: 1: No acute bone or joint abnormality.
--- NOTE | ~2024-02-13 | CT_ITS ---
CT head without contrast Indication: Altered mental status COMPARISON: 01/10/2024 Technique: Serial scans were obtained through the brain without the administration of contrast. Dose reduction technique was used on this scan by utilizing automated exposure control and iterative recon struction technique. The dose-length product (DLP) was 1210.67 mGy-cm. Findings: There is no evidence of intracranial hemorrhage, mass lesion, or acute infarct. Chronic lac unar infarct in the left basal ganglia again noted. The ventricles and subarachnoid spaces are dilate d, consistent with moderate atrophy. Low attenuation regions are seen within the periventricular whi te matter bilaterally, likely representing changes from chronic microvascular ischemic disease. There is no evidence of edema, mass effect or midline shift. The visualized paranasal sinuses and mastoi d air cells are clear. Impression: No intracranial hemorrhage, mass, or acute infarct. Stable chronic left basal ganglia lacunar infarct. Atrophy and chronic white matter changes, as above. Reviewed, dictated and finalized at location . Impression: No intracranial hemorrhage, mass, or acute infarct. Stable chronic left basal ganglia lacunar infarct. Atrophy and chronic white matter changes, as above.
--- NOTE | 2024-02-13 12:09 | ED.FALL ---
HPI - Fall General Chief Complaint: Fall Stated Complaint: fall Time Seen by Provider: 02/13/24 12:05 Source: patient, family () and EMS Mode of arrival: EMS Limitations: clinical condition and dementia History of Present Illness HPI Narrative: Patient presents after reportedly falling last evening. Patient's helped her to the restroom and cleaned her up and then was helping her walk back to the room when he felt that her right leg gave out and he assisted in helping her to the ground. He denies her frankly falling. She was too weak and he was unable to get her up overnight so he left her on the ground with a pillow and blanket and called EMS this morning. Patient's last oral intake was last night. Last bowel movement was yesterday evening prior to the fall. Her daughter called for a wellness check. Recently admitted for urinary tract infection per which required IV antibiotics initially and was transition to oral antibiotics. She finished that course and then provided a urine sample to her primary care physician and was notified last Saturday that she continue to have evidence of urinary tract infection for this she was prescribed a 7 day course of ciprofloxacin which she has completed. notes that she has had decreased hydration and oral intake for the past few days. He believes the ecchymosis on her right arm is due to her lying on her side and trying at times to assist herself up. History of CVA and dementia and is alert oriented to self at baseline. Only medication on patient's list initially is atorvastatin but patient's does list others. Patient's daughter had indicated there was concern patient's is able to take care of her at home. Related Data Home Medications Medication Instructions Recorded Confirmed atorvastatin 40 mg tablet 40 mg PO QHS 01/22/24 02/13/24 Allergies Allergy/AdvReac Type Severity Reaction Status Date / Time Penicillins Allergy Unknown Unknown Verified 02/13/24 12:12 [facility] Past Medical History Medical History Anemia Arthritis CVA (cerebral vascular accident) Dementia Dyslipidemia Elevated LFTs Essential (primary) hypertension Gastro-esophageal reflux disease without esophagitis Hyponatremia Hypothyroidism, unspecified Vitamin D deficiency Surgical History Surgical History History of appendectomy History of cholecystectomy Family History Family History Mother Family history of liver disease Social History Social History Social History: . DNR signed by Obdulio Linn January 2024 but no other signatures on it. Patient's oldest daughter is a retired nurse. Smoking status: Never smoker Second hand tobacco smoke exposure: No Alcohol intake: never Substance use: never Substance use type: does not use Do You Feel Safe in your Home?: Yes Lack of Transportation: No Lack of Food: Never True Current Housing: I Have Housing Concerned About Future Housing: No Difficulty Paying Gas/Electric Bills: No Difficulty Paying for Meds: No Currently Unemployed: No Education: Don't Know Difficulty w/ Childcare or Family Care: No Living arrangements: with family Gender identity (if verbalized by the patient): Female Spiritual care concerns: No Exam Narrative: GENERAL: Well-appearing, well-nourished, and in no acute distress. HEAD: Normocephalic, atraumatic. EYES: Non injected, non icteric ENT: Nares clear, no rhinorrhea or epistaxis. Lips dry though moist mucous membranes. NECK: Supple. CHEST: No respiratory distress. Lungs clear to auscultation bilaterally. HEART: Regular rate and rhythm. . ABDOMEN: Soft, nondistended. EXTREMITIES: Normal range of motion. No lower extremity edema.
[2024-02-13] MEDS: SODIUM CHLORIDE 0.9% IV 1,000 ML 999 ML IV CONT (13:07)
[2024-02-13] MEDS: ACETAMINOPHEN 500 MG TABLET 1000 MG PO (13:08)
[2024-02-13 13:23] LABS: Basophils Percent Auto 0.2 % (0.2-1.2); Eosinophils Percent Auto 0.2 % (0-4.4); Hematocrit 32.2 % (37.0-47.0); Hemoglobin 11.1 g/dL (12.0-15.0); Immature Granulocyte Absolute 0.03 K/mm3 (0.00-0.031); Immature Granulocyte Percent A 0.3 % (0-0.5); Lymphocytes Absolute Auto 1.16 K/mm3 (0.9-3.2); Lymphocytes Percent Auto 12.7 % (18.3-44.2); Mean Corpuscular HGB Conc 34.5 g/dl (32-36); Mean Corpuscular Hemoglobin 30.4 pg (26-34); Mean Corpuscular Volume 88.2 fl (80-100); Mean Platelet Volume 9.7 fl (7.4-10.4); Monocytes Absolute Auto 0.4 K/mm3 (0.1-0.6); Monocytes Percent Auto 4.7 % (2.6-8.5); Neutrophils Absolute Auto 7.4 K/mm3 (1.3-6.7); Neutrophils Percent Auto 81.9 % (45.5-73.1); Platelet Count Result 230 k/mm3 (150-375); Red Blood Count 3.65 M/mm3 (4.2-5.4); Red Cell Distribution Width 13.2 % (11.5-14.5); White Blood Count 9.1 K/mm3 (4.5-10.0)
[2024-02-13 13:37] LABS: Add Urine Microscopic? YES; Appearance Urine Cloudy (Clear); Bacteria Urine None Seen /hpf; Bilirubin Urine Negative (Negative); Blood Urine 1+ (Negative); Color Urine Yellow (Yellow); Glucose Urine UA Negative (Negative); Ketones Urine Trace mg/dL (Negative); Leukocyte Esterase Ur 3+ LEU/UL (Negative); Nitrate Urine Negative (Negative); Protein Urine 2+ mg/dL (Negative); Specific Grav Ur 1.018 (1.001-1.035); Squamous Epithelial Cell Urine Occasional /hpf (Few); WBC Urine >100 /hpf (0-3)
[2024-02-13 13:38] LABS: Alveolar/Arterial O2 Gradient 2.1 mmHg; Base Excess ABG -1.6 mEq/l (+/-2.0); Fractional Inspired Oxygen 21 %; HCO3 ABG 18.7 mEq/l (22.0-26.0); Oxygen Content ABG 16.5 %vol (16.0-22.0); Oxygen Saturation ABG 98.9 % (95.0-100.0); Oxyhemoglobin 98.2 % THb (90.0-100.0); PO2 ABG 122.6 mmHg (80.0-100.0); PO2 FiO2 Ratio Arterial Blood 5.84 %; Total Hemoglobin 11.8 g/dL (12.0-18.0)
[2024-02-13 13:39] LABS: Alanine Aminotransferase 36 U/L (6-35); Albumin Level 3.7 g/dL (3.5-5.1); Alkaline Phosphatase 127 U/L (38-126); Anion Gap 10 mmol/L (4-12); Aspartate Amino Transferase 78 U/L (14-36); Bilirubin,Total 0.6 mg/dL (0.2-1.3); Blood Urea Nitrogen 27 mg/dL (7-17); Calcium 8.6 mg/dL (8.4-10.2); Carbon Dioxide 24 mmol/L (22-30); Chloride 90 mmol/L (98-107); Creatine Kinase 1474 U/L (30-135); Estimated CRCL calculation 41 ml/min; Estimated Glomerular Filt Rate > 60; Glucose 126 mg/dL (65-110); Magnesium 1.6 mg/dL (1.6-2.3); Potassium 4.2 mmol/L (3.4-5.0); Sodium 124 mmol/L (137-145)
[2024-02-13 13:42] LABS: Device ROOM AIR; Modified Allen's Test Pass; PCO2 ABG 20.9 mmHg (35.0-45.0); Site Drawn RIGHT RADIAL
[2024-02-13 14:07] LABS: Influenza A QL RT-PCR Negative (Negative); Influenza B QL RT-PCR Negative (Negative); RSV RNA, RT-PCR Negative (Negative); SARS-CoV-2 RNA PCR Negative (Negative)
[2024-02-13] MEDS: AZITHROMYCIN 250 MG TABLET 500 MG PO (14:10)
--- NOTE | 2024-02-13 15:55 | ADMGEN ---
This patient, Charley Lane, was admitted to 2 Medical Room 256-01. Patient/family oriented to hospital policies and general routines including ID bracelet, bed and alarms, visiting hours, pain management, procedures, bathroom and other care routines, personal items, smoking policy, room service/diet, and visiting hours. Information on how to activate the Rapid Response Team has been discussed. Patient/Family are encouraged to report perceived risks to care and to ask questions if they do not understand what they are told or what they should do.
--- NOTE | 2024-02-13 21:20 | PM.IMHP ---
H&P: HPI History of Present Illness Date/Time: 02/13/24 21:20 Chief Complaint: Fall Narrative: 88 y/o F presents here with fall with PMH of CVA, dementia, GERD, HTN, elevated LFTs, dyslipidemia, hyponatremia, and hypothyroidism. The patient presents here via EMS from home for further evaluation. HPI obtained through chart review, patient is A&O times 0 in unable to meaningfully contribute to HPI. Patient's reported that the patient became weak last night and he had to lower her to the ground next to their bed around 6:00 p.m.. He was unable to get her back up so he left her lying on the floor. Daughter became concerned and called PD for a wellness check on her mother. Upon EMS arrival, patient was found still laying prone on the floor next to her bed. Patient has history of dementia and is A&O x1 at baseline, arrived as same. Daughter expressed concerns to ED provider that patient is not safe at home to be cared for by her , is reportedly an alcoholic. Upon arrival to the ED, it was noted that patient had bruising noted to her right side which has been attributed to laying on her right side for part of the night. Initial VS at presentation: 97.6? F, HR 84, RR 16, 131/63, and 100% on RA ED workup showed: No leukocytosis, hemoglobin 11.1 (previously 12.2 on 01/30/2024), ABG showed a pH of 7.70, CO2 20.9, and O2 122.6, HC03 18.7, sodium 124, glucose 126, CK 1474, mild bump in LFTs, and UA suspicious for UTI. Viral PCR negative. Head CT showed chronic findings, no acute findings. CXR showed subtle right upper lobe airspace disease, suspicious for pneumonia. XR of the forearm showed no acute abnormalities. Shoulder XR showed no acute findings. Review of Systems Review of Systems: ROS unobtainable: Yes unobtainable due to mental status (Limited, A&O x1) [facility] Past Medical History Medical History Anemia Arthritis CVA (cerebral vascular accident) Dementia Dyslipidemia Elevated LFTs Essential (primary) hypertension Gastro-esophageal reflux disease without esophagitis Hyponatremia Hypothyroidism, unspecified Vitamin D deficiency Surgical History Surgical History History of appendectomy History of cholecystectomy Family History Family History Mother Family history of liver disease Social History Social History Social History: . DNR signed by Obdulio Linn January 2024 but no other signatures on it. Patient's oldest daughter is a retired nurse. Smoking status: Never smoker Second hand tobacco smoke exposure: No Alcohol intake: never Substance use: never Substance use type: does not use Do You Feel Safe in your Home?: Yes Lack of Transportation: No Lack of Food: Never True Current Housing: I Have Housing Concerned About Future Housing: No Difficulty Paying Gas/Electric Bills: No Difficulty Paying for Meds: No Currently Unemployed: No Education: Don't Know Difficulty w/ Childcare or Family Care: No Living arrangements: with family Gender identity (if verbalized by the patient): Female Spiritual care concerns: No Meds Home Medications and Allergies Home Medications Medication Instructions Recorded Confirmed Type aspirin 81 mg tablet,delayed 81 mg PO QAM #30 tabs 03/20/22 02/13/24 Rx release levothyroxine 100 mcg tablet 100 mcg PO DAILY #90 tabs 07/25/23 02/13/24 Rx lisinopril 40 mg tablet 40 mg PO DAILY #90 tabs 11/25/23 02/13/24 Rx metoprolol tartrate 50 mg tablet 50 mg PO BID #180 tabs 11/25/23 02/13/24 Rx atorvastatin 40 mg tablet 40 mg PO QHS 01/22/24 02/13/24 History cyanocobalamin (vitamin B-12) 1,000 mcg sublingual DAILY #90 tabs 01/30/24 02/13/24 Rx 1,000 mcg sublingual tablet sodium chloride 1,000 mg solu
[2024-02-13] MEDS: ATORVASTATIN 40 MG TABLET PO (22:19)
[2024-02-13] MEDS: METOPROLOL TARTRATE 50 MG TAB PO (22:20)
[2024-02-14] VITALS (8 sets, daily range): BP systolic 124–157; BP diastolic 61–80; PULSE 66–80; RESP 16–20; TEMP 35.9–37.2; O2SAT 95–100; BMI 24.3
[2024-02-14] MEDS: LEVOTHYROXINE SODIUM 100 MCG TABLET PO (06:05)
[2024-02-14 06:47] LABS: Basophils Percent Auto 0.4 % (0.2-1.2); Eosinophils Absolute Auto 0.2 K/mm3 (0-0.3); Eosinophils Percent Auto 4.2 % (0-4.4); Hematocrit 28.3 % (37.0-47.0); Hemoglobin 9.5 g/dL (12.0-15.0); Immature Granulocyte Absolute 0.03 K/mm3 (0.00-0.031); Immature Granulocyte Percent A 0.5 % (0-0.5); Lymphocytes Absolute Auto 1.55 K/mm3 (0.9-3.2); Lymphocytes Percent Auto 27.4 % (18.3-44.2); Mean Corpuscular HGB Conc 33.6 g/dl (32-36); Mean Corpuscular Volume 89.3 fl (80-100); Monocytes Absolute Auto 0.5 K/mm3 (0.1-0.6); Monocytes Percent Auto 8.3 % (2.6-8.5); Neutrophils Absolute Auto 3.4 K/mm3 (1.3-6.7); Neutrophils Percent Auto 59.2 % (45.5-73.1); Platelet Count Result 221 k/mm3 (150-375); Red Blood Count 3.17 M/mm3 (4.2-5.4); Red Cell Distribution Width 13.4 % (11.5-14.5); White Blood Count 5.7 K/mm3 (4.5-10.0)
[2024-02-14 06:54] LABS: Alanine Aminotransferase 30 U/L (6-35); Albumin Level 2.9 g/dL (3.5-5.1); Alkaline Phosphatase 89 U/L (38-126); Anion Gap 6 mmol/L (4-12); Aspartate Amino Transferase 66 U/L (14-36); Bilirubin,Total 0.5 mg/dL (0.2-1.3); Blood Urea Nitrogen 16 mg/dL (7-17); Calcium 8.1 mg/dL (8.4-10.2); Carbon Dioxide 22 mmol/L (22-30); Chloride 98 mmol/L (98-107); Creatine Kinase 942 U/L (30-135); Estimated CRCL calculation 47 ml/min; Estimated Glomerular Filt Rate > 60; Glucose 89 mg/dL (65-110); Potassium 4.2 mmol/L (3.4-5.0); Sodium 126 mmol/L (137-145)
[2024-02-14] MEDS: ASPIRIN 81 MG ENTERIC TABLET PO (08:46)
[2024-02-14] MEDS: MEMANTINE 10 MG TABLET PO ×2 (08:46→17:35)
[2024-02-14] MEDS: lisinopriL 20 MG TABLET 40 MG PO (08:47)
[2024-02-14] MEDS: METOPROLOL TARTRATE 50 MG TAB PO ×2 (08:47→20:58)
[2024-02-14] MEDS: SODIUM CHLORIDE 1 GM TABLET PO (08:47)
[2024-02-14] MEDS: CYANOCOBALAMIN 1,000 MCG TABLET 1000 MCG PO (08:48)
[2024-02-14] MEDS: SODIUM CHLORIDE 0.9% IV 1,000 ML 100 ML IV CONT ×2 (08:48→20:15)
--- NOTE | 2024-02-14 12:14 | PM.IMPN ---
Progress Note: A&P Assessment and Plan (1) Weakness: Code(s): R53.1 - Weakness Status: Acute Assessment and Plan: - trauma workup negative for acute fractures or findings - suspect weakness is multifactorial: persistent UTI, poor p.o. intake/dehydration, and acute pneumonia - PT/OT eval and treat - given concerns for patient's wellbeing at home, care coordination consulted for placement 02/14/24: Generally weak without any focal findings. Continue to treat infection. PT and OT eval Placement at discharge. (2) Pneumonia involving right lung: Qualifiers: Lung location: unspecified part of lung Pneumonia type: due to unspecified organism Qualified Code(s): J18.9 - Pneumonia, unspecified organism Code(s): J18.9 - Pneumonia, unspecified organism Status: Acute Assessment and Plan: - did not meet SIRS criteria - CXR: Subtle right upper lobe airspace disease, suspicious for pneumonia. - risk factors: None - complicating factors: None - started on CAP tx: ceftriaxone and azithromycin on 02/12 - viral PCR negative - no supplemental O2 requirement 02/14/24: Continue Rocephin and Azithromycin. Monitor labs and VS. Not requiring supplemental oxygen. Stable assessment. (3) Acute UTI: Code(s): N39.0 - Urinary tract infection, site not specified Status: Suspected Assessment and Plan: - UA: Cloudy, 2+ protein, trace ketones, 1+ blood, 3+ leuks, 11-20 RBC, greater than 100 WBC, occasional epithelial cells, no bacteria. - UC pending - previous micro reviewed, has previously grown E coli that was resistant to Cipro/Levaquin/ampicillin in 2020. However most recent culture on 01/31/2024 and 01/10/24 grew E coli that was pansensitive. - started on Ceftriaxone on 02/12 -most recent antibiotic course for UTI prescribed on 02/03/2024, Cipro 500 b.i.d. x7 days 02/14/24: Failed outpt treatment. Continue Rocephin. Urine culture Pending Previous Urine cx grew out E.coli. (4) Elevated CPK: Code(s): R74.8 - Abnormal levels of other serum enzymes Status: Acute Assessment and Plan: - CK 1474 - IV fluids: 1L bolus, 100 mL/hr. assess daily for appropriateness to d/c - trend CK, monitor I&Os, and monitor renal function 02/14/24: Trending downward 1474-->942 today. Continue to trend Continue IVF. Pt appears euvolemic, continue fluids. (5) Hyponatremia: Code(s): E87.1 - Hypo-osmolality and hyponatremia Status: Acute Assessment and Plan: - chronic, baseline over the last year: 126-138 - Na 124, previously 126 on 01/30/2024 - given NS infusion - continue sodium tabs 1 g daily - trend, if no improvement with IV fluids consider nephro consultation 02/14/24: Improvement overnight from 124-->126. Continue slow replacement with Normal Saline. Continue to trend. If worsening, consider Nephrology consult. (6) Essential (primary) hypertension: Code(s): I10 - Essential (primary) hypertension Status: Chronic Assessment and Plan: - chronic, currently 122/56 - home medications: continue metoprolol b.i.d. and lisinopril daily - monitor 02/14/24: Running 120s/50s-70s. Continue to monitor and adjust meds as needed. Plan Diet: Regular GI Prophylaxis: Not currently indicated DVT Prophylaxis: SCDs Lines: Peripheral Code Status: DNR Time Spent With Patient Time with patient: 25 - 35 minutes Subjective Date/time seen: 02/14/24 1020 Interval history: This very pleasantly confused pt was examined at the bedside today in interval assessment. She does not appear to be in any acute distress and is alert and oriented to self only. She is unable to answer questions for ROS. Review of Systems Review of Systems: ROS unobtainable: Yes unobtainable due to medical condition (Dementia) Exam Const: General: comfortable and no acute distress HENMT: Face/Nose/Sinus: Normal nares pres
[2024-02-14] MEDS: AZITHROMYCIN 500 MG/NS 250 ML 500 MG/250 ML BAG 250 MG IVPB (18:46)
[2024-02-14] MEDS: ATORVASTATIN 40 MG TABLET PO (20:58)
[2024-02-15] VITALS (7 sets, daily range): BP systolic 142–162; BP diastolic 54–86; PULSE 56–80; RESP 16–20; TEMP 36.2–36.7; O2SAT 90–100
[2024-02-15 05:01] LABS: Basophils Percent Auto 0.4 % (0.2-1.2); Eosinophils Absolute Auto 0.3 K/mm3 (0-0.3); Eosinophils Percent Auto 4.6 % (0-4.4); Hematocrit 26.4 % (37.0-47.0); Hemoglobin 8.8 g/dL (12.0-15.0); Immature Granulocyte Absolute 0.02 K/mm3 (0.00-0.031); Immature Granulocyte Percent A 0.4 % (0-0.5); Lymphocytes Absolute Auto 1.91 K/mm3 (0.9-3.2); Lymphocytes Percent Auto 33.9 % (18.3-44.2); Mean Corpuscular HGB Conc 33.3 g/dl (32-36); Mean Corpuscular Hemoglobin 30.3 pg (26-34); Mean Platelet Volume 9.6 fl (7.4-10.4); Monocytes Absolute Auto 0.5 K/mm3 (0.1-0.6); Monocytes Percent Auto 8.5 % (2.6-8.5); Neutrophils Percent Auto 52.2 % (45.5-73.1); Platelet Count Result 195 k/mm3 (150-375); Red Cell Distribution Width 13.3 % (11.5-14.5); White Blood Count 5.6 K/mm3 (4.5-10.0)
[2024-02-15 05:08] LABS: Alanine Aminotransferase 27 U/L (6-35); Albumin Level 2.6 g/dL (3.5-5.1); Alkaline Phosphatase 81 U/L (38-126); Anion Gap 5 mmol/L (4-12); Aspartate Amino Transferase 56 U/L (14-36); Bilirubin,Total 0.3 mg/dL (0.2-1.3); Blood Urea Nitrogen 9 mg/dL (7-17); Calcium 7.8 mg/dL (8.4-10.2); Carbon Dioxide 19 mmol/L (22-30); Chloride 103 mmol/L (98-107); Creatine Kinase 636 U/L (30-135); Estimated CRCL calculation 47 ml/min; Estimated Glomerular Filt Rate > 60; Glucose 89 mg/dL (65-110); Potassium 3.5 mmol/L (3.4-5.0); Sodium 127 mmol/L (137-145)
[2024-02-15] MEDS: LEVOTHYROXINE SODIUM 100 MCG TABLET PO (05:36)
[2024-02-15] MEDS: SODIUM CHLORIDE 0.9% IV 1,000 ML 100 ML IV CONT (06:02)
[2024-02-15] MEDS: MEMANTINE 10 MG TABLET PO ×2 (09:22→17:00)
[2024-02-15] MEDS: lisinopriL 20 MG TABLET 40 MG PO (09:22)
[2024-02-15] MEDS: ASPIRIN 81 MG ENTERIC TABLET PO (09:23)
[2024-02-15] MEDS: SODIUM CHLORIDE 1 GM TABLET PO (09:23)
[2024-02-15] MEDS: METOPROLOL TARTRATE 50 MG TAB PO ×2 (09:23→21:10)
[2024-02-15] MEDS: CYANOCOBALAMIN 1,000 MCG TABLET 1000 MCG PO (09:23)
--- NOTE | 2024-02-15 09:28 | P.PNIM_ITS ---
Progress Note: A&P Assessment and Plan (1) Weakness: Code(s): R53.1 - Weakness Status: Acute Assessment and Plan: - trauma workup negative for acute fractures or findings - suspect weakness is multifactorial: persistent UTI, poor p.o. intake/dehydration, and acute pneumonia - PT/OT eval and treat - given concerns for patient's wellbeing at home, care coordination consulted for placement * Generally weak without any focal findings. * Continue to treat infection. * PT and OT eval * Placement at discharge. * continue to work with PT/OT (2) Pneumonia involving right lung: Qualifiers: Lung location: unspecified part of lung Pneumonia type: due to unspecified organism Qualified Code(s): J18.9 - Pneumonia, unspecified organism Code(s): J18.9 - Pneumonia, unspecified organism Status: Acute Assessment and Plan: - did not meet SIRS criteria - CXR: Subtle right upper lobe airspace disease, suspicious for pneumonia. - risk factors: None - complicating factors: None - started on CAP tx: ceftriaxone and azithromycin on 02/12 - viral PCR negative - no supplemental O2 requirement * Continue Rocephin and Azithromycin. * Monitor labs and VS. * Not requiring supplemental oxygen. * Stable assessment- in no resp distress (3) Acute UTI: Code(s): N39.0 - Urinary tract infection, site not specified Status: Suspected Assessment and Plan: - UA: Cloudy, 2+ protein, trace ketones, 1+ blood, 3+ leuks, 11-20 RBC, greater than 100 WBC, occasional epithelial cells, no bacteria. - UC pending - previous micro reviewed, has previously grown E coli that was resistant to Ci pro/Levaquin/ampicillin in 2020. However most recent culture on 01/31/2024 and 01/10/24 grew E coli that was pansensitive. - started on Ceftriaxone on 02/12 -most recent antibiotic course for UTI prescribed on 02/03/2024, Cipro 500 b.i.d. x7 days 02/14/24: * Failed outpt treatment. * Continue Rocephin. * Urine culture Pending * Previous Urine cx grew out E.coli. 02/14- negative so far - prelim (4) Elevated CPK: Code(s): R74.8 - Abnormal levels of other serum enzymes Status: Acute Assessment and Plan: - CK 1474 - IV fluids: 1L bolus, 100 mL/hr. assess daily for appropriateness to d/c - trend CK, monitor I&Os, and monitor renal function 02/14/24: * Trending downward 1474-->942 today. * Continue to trend * Continue IVF. * Pt appears euvolemic, continue fluids. (5) Hyponatremia: Code(s): E87.1 - Hypo-osmolality and hyponatremia Status: Acute Assessment and Plan: - chronic, baseline over the last year: 126-138 - Na 124, previously 126 on 01/30/2024 - given NS infusion - continue sodium tabs 1 g daily - trend, if no improvement with IV fluids consider nephro consultation 02/14/24: * Improvement overnight from 124-->126. * Continue slow replacement with Normal Saline. * Continue to trend. * If worsening, consider Nephrology consult 02/14 na 127 today. slowly improving- continue NS, continue sodium tabs 1 g daily and monitor (6) Essential (primary) hypertension: Code(s): I10 - Essential (primary) hypertension Status: Chronic Assessment and Plan: - chronic, currently 122/56 - home medications: continue metoprolol b.i.d. and lisinopril daily - monitor 02/14/24: * Running 120s/50s-70s. * Continue to monitor and adjust meds as needed. 02/14- reviewed and stable Plan Di
[2024-02-15] MEDS: SODIUM CHLORIDE 0.9% IV 1,000 ML 50 ML IV CONT (16:59)
[2024-02-15] MEDS: AZITHROMYCIN 500 MG/NS 250 ML 500 MG/250 ML BAG 250 MG IVPB (18:33)
[2024-02-15] MEDS: ATORVASTATIN 40 MG TABLET PO (21:11)
[2024-02-16 05:58] VITALS: BP 107/60; PULSE 70; RESP 20; TEMP 36.3; O2SAT 99
--- NOTE | 2024-02-16 09:08 | PM.IMPN ---
Progress Note: A&P Assessment and Plan (1) Weakness: Code(s): R53.1 - Weakness Status: Acute Assessment and Plan: - trauma workup negative for acute fractures or findings - suspect weakness is multifactorial: persistent UTI, poor p.o. intake/dehydration, and acute pneumonia - PT/OT eval and treat - given concerns for patient's wellbeing at home, care coordination consulted for placement Generally weak without any focal findings. Continue to treat infection. PT and OT eval Placement at discharge. continue to work with PT/OT (2) Pneumonia involving right lung: Qualifiers: Lung location: unspecified part of lung Pneumonia type: due to unspecified organism Qualified Code(s): J18.9 - Pneumonia, unspecified organism Code(s): J18.9 - Pneumonia, unspecified organism Status: Acute Assessment and Plan: - did not meet SIRS criteria - CXR: Subtle right upper lobe airspace disease, suspicious for pneumonia. - risk factors: None - complicating factors: None - started on CAP tx: ceftriaxone and azithromycin on 02/12 - viral PCR negative - no supplemental O2 requirement Continue Rocephin and Azithromycin. Monitor labs and VS. Not requiring supplemental oxygen. Stable assessment- in no resp distress (3) Acute UTI: Code(s): N39.0 - Urinary tract infection, site not specified Status: Suspected Assessment and Plan: - UA: Cloudy, 2+ protein, trace ketones, 1+ blood, 3+ leuks, 11-20 RBC, greater than 100 WBC, occasional epithelial cells, no bacteria. - UC pending - previous micro reviewed, has previously grown E coli that was resistant to Cipro/Levaquin/ampicillin in 2020. However most recent culture on 01/31/2024 and 01/10/24 grew E coli that was pansensitive. - started on Ceftriaxone on 02/12 -most recent antibiotic course for UTI prescribed on 02/03/2024, Cipro 500 b.i.d. x7 days 02/14/24: Failed outpt treatment. Continue Rocephin. Urine culture Pending Previous Urine cx grew out E.coli. 02/14- negative so far - prelim 02/15- final UA- negative for UTI (4) Elevated CPK: Code(s): R74.8 - Abnormal levels of other serum enzymes Status: Acute Assessment and Plan: - CK 1474 - IV fluids: 1L bolus, 100 mL/hr. assess daily for appropriateness to d/c - trend CK, monitor I&Os, and monitor renal function 02/14/24: Trending downward 1474-->942 today. Continue to trend Continue IVF. Pt appears euvolemic, continue fluids. (5) Hyponatremia: Code(s): E87.1 - Hypo-osmolality and hyponatremia Status: Acute Assessment and Plan: - chronic, baseline over the last year: 126-138 - Na 124, previously 126 on 01/30/2024 - given NS infusion - continue sodium tabs 1 g daily - trend, if no improvement with IV fluids consider nephro consultation 02/14/24: Improvement overnight from 124-->126. Continue slow replacement with Normal Saline. Continue to trend. If worsening, consider Nephrology consult 02/14 na 127 today. slowly improving- continue NS, continue sodium tabs 1 g daily and monitor (6) Essential (primary) hypertension: Code(s): I10 - Essential (primary) hypertension Status: Chronic Assessment and Plan: - chronic, currently 122/56 - home medications: continue metoprolol b.i.d. and lisinopril daily - monitor 02/14/24: Running 120s/50s-70s. Continue to monitor and adjust meds as needed. 02/14- reviewed and stable Plan Diet: Regular GI Prophylaxis: Not currently indicated DVT Prophylaxis: SCDs Lines: Peripheral Code Status: DNR Time Spent With Patient Time with patient: Greater than 35 minutes Subjective Date/time seen: 02/16/24 09:08 Interval history: This very pleasantly confused pt was examined at the bedside today She does not appear to be in any acute distress and is alert and oriented to self only. She is able to answer some questions. denies chest pain, sob, n
[2024-02-16] MEDS: LEVOTHYROXINE SODIUM 100 MCG TABLET PO (09:35)
[2024-02-16] MEDS: lisinopriL 20 MG TABLET 40 MG PO (09:36)
[2024-02-16] MEDS: CYANOCOBALAMIN 1,000 MCG TABLET 1000 MCG PO (09:36)
[2024-02-16] MEDS: MEMANTINE 10 MG TABLET PO ×2 (09:36→17:17)
[2024-02-16] MEDS: ASPIRIN 81 MG ENTERIC TABLET PO (09:36)
[2024-02-16] MEDS: SODIUM CHLORIDE 1 GM TABLET PO (09:36)
[2024-02-16 09:37] VITALS: PULSE 70
[2024-02-16] MEDS: METOPROLOL TARTRATE 50 MG TAB PO ×2 (09:37→20:26)
[2024-02-16 14:00] VITALS: BP 168/82; PULSE 72; RESP 18; TEMP 36.4; O2SAT 98
[2024-02-16] MEDS: SODIUM CHLORIDE 0.9% IV 1,000 ML 50 ML IV CONT (14:59)
[2024-02-16] MEDS: AZITHROMYCIN 500 MG/NS 250 ML 500 MG/250 ML BAG 250 MG IVPB (18:36)
[2024-02-16 20:26] VITALS: PULSE 74
[2024-02-16] MEDS: ATORVASTATIN 40 MG TABLET PO (20:26)
[2024-02-16 21:59] VITALS: BP 154/80; PULSE 91; RESP 18; TEMP 36.4; O2SAT 94
[2024-02-17] VITALS (8 sets, daily range): BP systolic 152–183; BP diastolic 71–72; PULSE 60–75; RESP 16–18; TEMP 36.4–36.7; O2SAT 98–100
[2024-02-17] MEDS: LEVOTHYROXINE SODIUM 100 MCG TABLET PO (05:48)
[2024-02-17 09:31] LABS: Basophils Percent Auto 0.3 % (0.2-1.2); Eosinophils Absolute Auto 0.3 K/mm3 (0-0.3); Eosinophils Percent Auto 4.3 % (0-4.4); Hematocrit 31.4 % (37.0-47.0); Hemoglobin 10.4 g/dL (12.0-15.0); Immature Granulocyte Absolute 0.03 K/mm3 (0.00-0.031); Immature Granulocyte Percent A 0.4 % (0-0.5); Lymphocytes Absolute Auto 1.81 K/mm3 (0.9-3.2); Lymphocytes Percent Auto 23.8 % (18.3-44.2); Mean Corpuscular HGB Conc 33.1 g/dl (32-36); Mean Corpuscular Hemoglobin 29.9 pg (26-34); Mean Corpuscular Volume 90.2 fl (80-100); Mean Platelet Volume 9.4 fl (7.4-10.4); Monocytes Absolute Auto 0.4 K/mm3 (0.1-0.6); Monocytes Percent Auto 5.5 % (2.6-8.5); Neutrophils Percent Auto 65.7 % (45.5-73.1); Platelet Count Result 216 k/mm3 (150-375); Red Blood Count 3.48 M/mm3 (4.2-5.4); Red Cell Distribution Width 13.5 % (11.5-14.5); White Blood Count 7.6 K/mm3 (4.5-10.0)
[2024-02-17 09:40] LABS: Alanine Aminotransferase 28 U/L (6-35); Albumin Level 3.1 g/dL (3.5-5.1); Alkaline Phosphatase 92 U/L (38-126); Anion Gap 6 mmol/L (4-12); Aspartate Amino Transferase 41 U/L (14-36); Bilirubin,Total 0.4 mg/dL (0.2-1.3); Blood Urea Nitrogen 5 mg/dL (7-17); Calcium 8.2 mg/dL (8.4-10.2); Carbon Dioxide 26 mmol/L (22-30); Chloride 100 mmol/L (98-107); Estimated CRCL calculation 47 ml/min; Estimated Glomerular Filt Rate > 60; Glucose 94 mg/dL (65-110); Sodium 132 mmol/L (137-145)
[2024-02-17] MEDS: SODIUM CHLORIDE 1 GM TABLET PO (09:42)
[2024-02-17] MEDS: MEMANTINE 10 MG TABLET PO ×2 (09:42→18:01)
[2024-02-17] MEDS: ASPIRIN 81 MG ENTERIC TABLET PO (09:42)
[2024-02-17] MEDS: METOPROLOL TARTRATE 50 MG TAB PO ×2 (09:42→21:05)
[2024-02-17] MEDS: lisinopriL 20 MG TABLET 40 MG PO (09:42)
[2024-02-17] MEDS: CYANOCOBALAMIN 1,000 MCG TABLET 1000 MCG PO (09:42)
--- NOTE | 2024-02-17 12:42 | PM.IMPN ---
Progress Note: A&P Assessment and Plan (1) Weakness: Code(s): R53.1 - Weakness Status: Acute Assessment and Plan: - trauma workup negative for acute fractures or findings - suspect weakness is multifactorial: persistent UTI, poor p.o. intake/dehydration, and acute pneumonia - PT/OT eval and treat - given concerns for patient's wellbeing at home, care coordination consulted for placement Generally weak without any focal findings. Continue to treat infection. PT and OT eval Placement at discharge. continue to work with PT/OT Working on [facility] at this time for rehab (2) Pneumonia involving right lung: Qualifiers: Lung location: unspecified part of lung Pneumonia type: due to unspecified organism Qualified Code(s): J18.9 - Pneumonia, unspecified organism Code(s): J18.9 - Pneumonia, unspecified organism Status: Acute Assessment and Plan: - did not meet SIRS criteria - CXR: Subtle right upper lobe airspace disease, suspicious for pneumonia. - risk factors: None - complicating factors: None - started on CAP tx: ceftriaxone and azithromycin on 02/12 - viral PCR negative - no supplemental O2 requirement Continue Rocephin and Azithromycin. Monitor labs and VS. Not requiring supplemental oxygen. Stable assessment- in no resp distress (3) Acute UTI: Code(s): N39.0 - Urinary tract infection, site not specified Status: Suspected Assessment and Plan: - UA: Cloudy, 2+ protein, trace ketones, 1+ blood, 3+ leuks, 11-20 RBC, greater than 100 WBC, occasional epithelial cells, no bacteria. - UC pending - previous micro reviewed, has previously grown E coli that was resistant to Cipro/Levaquin/ampicillin in 2020. However most recent culture on 01/31/2024 and 01/10/24 grew E coli that was pansensitive. - started on Ceftriaxone on 02/12 -most recent antibiotic course for UTI prescribed on 02/03/2024, Cipro 500 b.i.d. x7 days 02/14/24: Failed outpt treatment. Continue Rocephin. Urine culture Pending Previous Urine cx grew out E.coli. 02/14- negative so far - prelim 02/15- final UA- negative for UTI (4) Elevated CPK: Code(s): R74.8 - Abnormal levels of other serum enzymes Status: Acute Assessment and Plan: - CK 1474 - IV fluids: 1L bolus, 100 mL/hr. assess daily for appropriateness to d/c - trend CK, monitor I&Os, and monitor renal function 02/14/24: Trending downward 1474-->942 today. Continue to trend Continue IVF. Pt appears euvolemic, continue fluids. (5) Hyponatremia: Code(s): E87.1 - Hypo-osmolality and hyponatremia Status: Acute Assessment and Plan: - chronic, baseline over the last year: 126-138 - Na 124, previously 126 on 01/30/2024 - given NS infusion - continue sodium tabs 1 g daily - trend, if no improvement with IV fluids consider nephro consultation 02/14/24: Improvement overnight from 124-->126. Continue slow replacement with Normal Saline. Continue to trend. If worsening, consider Nephrology consult 02/14 na 127 today. slowly improving- continue NS, continue sodium tabs 1 g daily and monitor (6) Essential (primary) hypertension: Code(s): I10 - Essential (primary) hypertension Status: Chronic Assessment and Plan: - chronic, currently 122/56 - home medications: continue metoprolol b.i.d. and lisinopril daily - monitor 02/14/24: Running 120s/50s-70s. Continue to monitor and adjust meds as needed. 02/14- reviewed and stable Plan Diet: Regular GI Prophylaxis: Not currently indicated DVT Prophylaxis: SCDs Lines: Peripheral Code Status: DNR Time Spent With Patient Time: 42 minutes Time with patient: Greater than 35 minutes Subjective Date/time seen: 02/17/24 12:42 Interval history: This very pleasantly confused pt was examined at the bedside today She does not appear to be in any acute distress and is alert and oriented to se
[2024-02-17] MEDS: SODIUM CHLORIDE 0.9% IV 1,000 ML 50 ML IV CONT (14:32)
[2024-02-17] MEDS: ATORVASTATIN 40 MG TABLET PO (21:05)
[2024-02-18 01:34] LABS: Legionella pneumophila Ag Ur NOT DETECTED
[2024-02-18 05:58] VITALS: BP 145/48; PULSE 66; RESP 18; TEMP 36.3; O2SAT 97
[2024-02-18] MEDS: LEVOTHYROXINE SODIUM 100 MCG TABLET PO (06:17)
[2024-02-18 09:05] VITALS: BP 158/66; PULSE 69; O2SAT 96
[2024-02-18] MEDS: SODIUM CHLORIDE 0.9% IV 1,000 ML 50 ML IV CONT (09:07)
[2024-02-18] MEDS: lisinopriL 20 MG TABLET 40 MG PO (09:07)
[2024-02-18 09:08] VITALS: PULSE 69
[2024-02-18] MEDS: SODIUM CHLORIDE 1 GM TABLET PO (09:08)
[2024-02-18] MEDS: ASPIRIN 81 MG ENTERIC TABLET PO (09:08)
[2024-02-18] MEDS: MEMANTINE 10 MG TABLET PO (09:08)
[2024-02-18] MEDS: METOPROLOL TARTRATE 50 MG TAB PO (09:08)
[2024-02-18] MEDS: CYANOCOBALAMIN 1,000 MCG TABLET 1000 MCG PO (09:08)
--- NOTE | 2024-02-18 09:09 | PM.IMPN ---
Progress Note: A&P Assessment and Plan (1) Weakness: Code(s): R53.1 - Weakness Status: Acute Assessment and Plan: 02/18/24: Continue PT and OT Case management following for SNF placement, awaiting authorization Continue fall precaution (2) Pneumonia involving right lung: Qualifiers: Lung location: unspecified part of lung Pneumonia type: due to unspecified organism Qualified Code(s): J18.9 - Pneumonia, unspecified organism Code(s): J18.9 - Pneumonia, unspecified organism Status: Acute Assessment and Plan: 02/18/24: Finished course of Rocephin and azithromycin while inpatient (3) Acute UTI: Code(s): N39.0 - Urinary tract infection, site not specified Status: Suspected Assessment and Plan: 02/18/24: Cloudy, 2+ protein, trace ketones, 1+ blood, 3+ leuks, 11-20 RBC, greater than 100 WBC, occasional epithelial cells, no bacteria. Urine culture negative Patient finished course of Rocephin for pneumonia coverage (4) Elevated CPK: Code(s): R74.8 - Abnormal levels of other serum enzymes Status: Acute Assessment and Plan: - CK 1474 - IV fluids: 1L bolus, 100 mL/hr. assess daily for appropriateness to d/c - trend CK, monitor I&Os, and monitor renal function 02/14/24: Trending downward 1474-->942 today. Continue to trend Continue IVF. Pt appears euvolemic, continue fluids. (5) Hyponatremia: Code(s): E87.1 - Hypo-osmolality and hyponatremia Status: Acute Assessment and Plan: - chronic, baseline over the last year: 126-138 - Na 124, previously 126 on 01/30/2024 - given NS infusion - continue sodium tabs 1 g daily - trend, if no improvement with IV fluids consider nephro consultation 02/14/24: Improvement overnight from 124-->126. Continue slow replacement with Normal Saline. Continue to trend. If worsening, consider Nephrology consult 02/14 na 127 today. slowly improving- continue NS, continue sodium tabs 1 g daily and monitor (6) Essential (primary) hypertension: Code(s): I10 - Essential (primary) hypertension Status: Chronic Assessment and Plan: - chronic, currently 122/56 - home medications: continue metoprolol b.i.d. and lisinopril daily - monitor 02/14/24: Running 120s/50s-70s. Continue to monitor and adjust meds as needed. 02/14- reviewed and stable Time Spent With Patient Time with patient: 25 - 35 minutes Subjective Date/time seen: 02/18/24 09:09 Interval history: Interval history: This is an 88-year-old female who presented to the hospital on 02/13/2024 for evaluation a ground level fall. 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 Chest x-ray shows subtle right upper lobe airspace disease suspicious for pneumonia. Right forearm x-ray was negative. Right shoulder x-ray was negative. Initial labs showed a normal white blood cell count of 9.1, RBC 3.65, hemoglobin 11.1, sodium 124, chloride 90, AST 78, ALT 36, alk-phos 127, total CK 1474. UA was obtained and showed cloudy urine appearance, 2+ urine protein, trace ketone, 1+ urine blood, 3+ leukocytes, 11-20 urine RBC, greater than 100 urine WBC. She was found to be stool occult blood positive. Respiratory panel was negative for influenza a and B, RSV, COVID. Urine Legionella was negative. Urine culture was obtained and was negative for any bacteria. Patient was given azithromycin and Rocephin while in the ED and finished her course of antibiotics. She has been working with therapy and they are recommending SNF placement. Case coordination awaiting authorization. Subjective: Review of Systems Review of Systems: All systems reviewed & are unremarkable except as noted in HPI and below Constitutional: Constitutional: Reports as per HPI and Reports no additional constitutio
--- NOTE | 2024-02-18 11:59 | PM.DS ---
DS: Admitting Diagnosis Discharge Date 02/18/24 Admitting Diagnosis Pneumonia Acute UTI Elevated CPK Hyponatremia Weakness Essential hypertension DS: Discharge Diagnosis Discharge Diagnosis (1) Weakness: Code(s): R53.1 - Weakness Status: Acute (2) Pneumonia involving right lung: Qualifiers: Lung location: unspecified part of lung Pneumonia type: due to unspecified organism Qualified Code(s): J18.9 - Pneumonia, unspecified organism Code(s): J18.9 - Pneumonia, unspecified organism Status: Acute (3) Acute UTI: Code(s): N39.0 - Urinary tract infection, site not specified Status: Suspected (4) Elevated CPK: Code(s): R74.8 - Abnormal levels of other serum enzymes Status: Acute (5) Hyponatremia: Code(s): E87.1 - Hypo-osmolality and hyponatremia Status: Acute (6) Essential (primary) hypertension: Code(s): I10 - Essential (primary) hypertension Status: Chronic DS: Summary Hospital Course Reason for hospitalization: Pneumonia Acute UTI Weakness Elevated CPK Hyponatremia Essential hypertension Hospital Course: This is an 88-year-old female who presented to the hospital on 02/13/2024 for evaluation a ground level fall. 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 Chest x-ray shows subtle right upper lobe airspace disease suspicious for pneumonia. Right forearm x-ray was negative. Right shoulder x-ray was negative. Initial labs showed a normal white blood cell count of 9.1, RBC 3.65, hemoglobin 11.1, sodium 124, chloride 90, AST 78, ALT 36, alk-phos 127, total CK 1474. UA was obtained and showed cloudy urine appearance, 2+ urine protein, trace ketone, 1+ urine blood, 3+ leukocytes, 11-20 urine RBC, greater than 100 urine WBC. She was found to be stool occult blood positive. Respiratory panel was negative for influenza a and B, RSV, COVID. Urine Legionella was negative. Urine culture was obtained and was negative for any bacteria. Patient was given azithromycin and Rocephin while in the ED and finished her course of antibiotics. She has been working with therapy and they are recommending SNF placement. Case coordination got authorization to transfer patient to [facility] for rehab. She is stable for discharge at this time. She will need to follow up with her primary care physician in 1-2 weeks. Final diagnosis pneumonia, hyponatremia, physical deconditioning Status at Discharge Cognitive/behavioral status at discharge: Alert and oriented x3 Functional status at discharge: uses cane/walker Overall status at discharge: patient is progressing back to baseline Time Spent with Patient Time attestation: Total time spent providing and/or coordinating discharge services: Time spent: Greater than 30 minutes Exam Narrative: General: In no acute distress Head: atraumatic, no encephalopathy Eyes: EOMI, PERRLA, sclera clear ENT: moist mucous membranes, nasal passages clear Neck: supple, no JVD, no adenopathy, trachea midline Cardiac: Normal S1 and S2. Murmur noted. No gallops or friction rubs, peripheral pulses intact. Respiratory: Lungs clear to auscultation, no adventitious lung sounds, currently on room air Gastrointestinal: soft, non-distended, non-tender, normoactive bowel sounds. : voiding without difficulty. Extremities: moves all extremities well, no edema Skin: clean, dry, intact. No wounds or lesions. Neuro: Alert and oriented x3, cranial nerves intact, no neuro deficits. Psych: normal mood, normal affect, interactive DS: Data Data Completed and Pending Completed studies during hospitalization: Chest x-ray Forearm x-ray Shoulder x-ray Head CT Pending studies at discharge: None Labs on day of discharge: Labs from last 24 hours 02/13/24 13:25 Ur L.pneumophila Ag
[2024-02-18 14:07] LABS: SARS-CoV-2 RNA PCR Negative (Negative)
== END 2024-02-18 14:45 | DRG 194 ==
LOC: ANHED 12:28 → ANH2MED 15:29
PROVIDERS: Nurse Practitioner; Nurse Practitioner Adult Health; Student in an Organized Health Care Education/Training Program; Admitting Provider Family Medicine; Emergency Provider Student in an Organized Health Care Education/Training Program; PCP Family Medicine; Visit Provider Nurse Practitioner Acute Care
DX: J18.9 Pneumonia, unspecified organism (principal); E87.1 Hypo-osmolality and hyponatremia; R53.1 Weakness; S50.11XA Contusion of right forearm, initial encounter; W18.39XA Other fall on same level, initial encounter; D64.9 Anemia, unspecified; M19.90 Unspecified osteoarthritis, unspecified site; F03.90 Unspecified dementia, unspecified severity, without behavioral disturbance, psychotic disturbance, mood disturbance, and anxiety; K21.9 Gastro-esophageal reflux disease without esophagitis; E03.9 Hypothyroidism, unspecified; E86.0 Dehydration; I10 Essential (primary) hypertension; R74.8 Abnormal levels of other serum enzymes; Z66 Do not resuscitate; Z20.822 Contact with and (suspected) exposure to COVID-19; Z86.73 Personal history of transient ischemic attack (TIA), and cerebral infarction without residual deficits; Z90.49 Acquired absence of other specified parts of digestive tract; Z79.82 Long term (current) use of aspirin
CPT/HCPCS: 36415; 36600; 70450; 71046; 73030; 73090; 80053; 81001; 82274; 82550; 82805; 83735; 85025; 87086; 87088; 87449; 87635; 87637; 96361; 96365; 97110; 97116; 97161; 97165; 97530; 99285; A9270; G0378; J0456; J0696; J7030

== ENCOUNTER 2024-02-14 09:23 | Outpatient (NON) | payer MEDICARE, SELFPAY ==
[2024-02-14 14:53] LABS: IFOB Positive Control Positive; Immunochemical Fecal Occult Bl Positive (N)
== END 2024-02-14 09:24 | disposition home or self-care (01) ==
LOC: ANHGOSHLAB 09:24
PROVIDERS: PCP Family Medicine; Visit Provider Family Medicine
DX: D64.9 Anemia, unspecified (principal)
CPT/HCPCS: 82274

== ENCOUNTER 2024-03-19 10:57 | Outpatient (CLI) | payer MEDICARE, SELFPAY ==
[2024-03-19 14:43] LABS: Basophils Percent Auto 0.4 % (0.2-1.2); Eosinophils Absolute Auto 0.3 K/mm3 (0-0.3); Eosinophils Percent Auto 3.5 % (0-4.4); Hematocrit 35.4 % (37.0-47.0); Hemoglobin 10.9 g/dL (12.0-15.0); Immature Granulocyte Absolute 0.03 K/mm3 (0.00-0.031); Immature Granulocyte Percent A 0.4 % (0-0.5); Lymphocytes Percent Auto 27.5 % (18.3-44.2); Mean Corpuscular HGB Conc 30.8 g/dl (32-36); Mean Corpuscular Hemoglobin 29.3 pg (26-34); Mean Corpuscular Volume 95.2 fl (80-100); Mean Platelet Volume 10.4 fl (7.4-10.4); Monocytes Absolute Auto 0.5 K/mm3 (0.1-0.6); Monocytes Percent Auto 6.5 % (2.6-8.5); Neutrophils Absolute Auto 4.7 K/mm3 (1.3-6.7); Neutrophils Percent Auto 61.7 % (45.5-73.1); Platelet Count Result 257 k/mm3 (150-375); Red Blood Count 3.72 M/mm3 (4.2-5.4); Red Cell Distribution Width 14.5 % (11.5-14.5); White Blood Count 7.7 K/mm3 (4.5-10.0)
[2024-03-19 14:56] LABS: Alanine Aminotransferase 19 U/L (6-35); Albumin Level 3.7 g/dL (3.5-5.1); Alkaline Phosphatase 138 U/L (38-126); Anion Gap 6 mmol/L (4-12); Aspartate Amino Transferase 47 U/L (14-36); Bilirubin,Total 0.3 mg/dL (0.2-1.3); Blood Urea Nitrogen 14 mg/dL (7-17); Calcium 8.7 mg/dL (8.4-10.2); Carbon Dioxide 30 mmol/L (22-30); Chloride 102 mmol/L (98-107); Estimated Glomerular Filt Rate > 60; Glucose 112 mg/dL (65-110); Sodium 138 mmol/L (137-145)
[2024-03-19 18:04] LABS: Vitamin D 25 Hydroxy 34.9 ng/mL
== END 2024-03-19 10:58 | disposition home or self-care (01) ==
LOC: ANHGOSHLAB 10:58
PROVIDERS: PCP Family Medicine; Visit Provider Family Medicine
DX: J18.9 Pneumonia, unspecified organism (principal); E87.1 Hypo-osmolality and hyponatremia; I10 Essential (primary) hypertension; D64.9 Anemia, unspecified; E55.9 Vitamin D deficiency, unspecified
CPT/HCPCS: 36415; 80053; 82306; 85025